=== PATIENT | female | born 1985 | race American Indian/Alaskan Native ===

== ENCOUNTER 2017-06-08 08:51 | Emergency (ER) | payer SELFPAY ==
[2017-06-08 09:29] VITALS: BP 131/85
--- NOTE | 2017-06-08 10:14 | Emergency Department Report ---
ED ENT HPI - General Chief complaint: Dental/Oral Stated complaint: RIGHT SIDE TOOTHACHE/SINUSES Time Seen by Provider: 06/08/17 10:04 Source: patient Mode of arrival: Ambulatory Limitations: No Limitations - History of Present Illness Initial comments: PT states she moved from [place] to [place] 1 week ago. PT states while she was moving, her tooth started to hurt. PT states she has been trying to treat herself with Motrin but no improvement. PT also states she has "real bad sinuses" and she usually takes Flonase and Singular. PT states she was taking otc dollar store nasal spray. PT states her lower right tooth has been bad since December. She states that Amoxil does not work for her and she has to take "straight PCN" pt states she also needs Diflucan with it. MD complaint: tooth pain -: Gradual 1 - pain Severity scale (0 -10): 7 Quality: aching, constant Consistency: constant Improves with: NSAID (mild ) Worsens with: eating Context- Dental: history of dental caries, poor dental care Associated Symptoms: toothache, rhinorrhea. denies: fever, sore throat - Related Data Previous Rx's Medication Instructions Recorded Last Taken Type Acetaminophen/Codeine [Tylenol #3] 1 tab PO Q6H PRN #12 tab 06/08/17 Unknown Rx Fluconazole [Diflucan TAB] 150 mg PO ONCE #1 tablet 06/08/17 Unknown Rx Fluticasone [Flonase] 2 spray NS QDAY #1 bottle 06/08/17 Unknown Rx Ibuprofen [Motrin] 600 mg PO Q8H PRN #15 tablet 06/08/17 Unknown Rx Montelukast [Singulair] 10 mg PO QPM #30 tablet 06/08/17 Unknown Rx Penicillin Vk [Veetids TAB] 500 mg PO QID 10 Days 06/08/17 Unknown Rx Allergies Allergy/AdvReac Type Severity Reaction Status Date / Time No Known Allergies Allergy Verified 06/08/17 09:22 ED Dental HPI - General Chief complaint: Dental/Oral Stated complaint: RIGHT SIDE TOOTHACHE/SINUSES Time Seen by Provider: 06/08/17 10:04 Source: patient Mode of arrival: Ambulatory Limitations: No Limitations - Related Data Previous Rx's Medication Instructions Recorded Last Taken Type Acetaminophen/Codeine [Tylenol #3] 1 tab PO Q6H PRN #12 tab 06/08/17 Unknown Rx Fluconazole [Diflucan TAB] 150 mg PO ONCE #1 tablet 06/08/17 Unknown Rx Fluticasone [Flonase] 2 spray NS QDAY #1 bottle 06/08/17 Unknown Rx Ibuprofen [Motrin] 600 mg PO Q8H PRN #15 tablet 06/08/17 Unknown Rx Montelukast [Singulair] 10 mg PO QPM #30 tablet 06/08/17 Unknown Rx Penicillin Vk [Veetids TAB] 500 mg PO QID 10 Days 06/08/17 Unknown Rx Allergies Allergy/AdvReac Type Severity Reaction Status Date / Time No Known Allergies Allergy Verified 06/08/17 09:22 ED Review of Systems ROS: Stated complaint: RIGHT SIDE TOOTHACHE/SINUSES Other details as noted in HPI Comment: All other systems reviewed and negative ENT: dental pain, congestion (hx of allergies ). denies: ear pain Respiratory: denies: cough Genitourinary: denies: abnormal menses (on cycle now ) ED Past Medical Hx - Past Medical History Previous Medical History?: Yes Hx Psychiatric Treatment: (anxiety) - Surgical History Past Surgical History?: No - Social History Smoking Status: Current Every Day Smoker Substance Use Type: None - Medications Home Medications: Home Medications Medication Instructions Recorded Confirmed Last Taken Type Acetaminophen/Codeine [Tylenol #3] 1 tab PO Q6H PRN #12 tab 06/08/17 Unknown Rx Fluconazole [Diflucan TAB] 150 mg PO ONCE #1 tablet 06/08/17 Unknown Rx Fluticasone [Flonase] 2 spray NS QDAY #1 bottle 06/08/17 Unknown Rx Ibuprofen [Motrin] 600 mg PO Q8H PRN #15 tablet 06/08/17 Unknown Rx Montelukast [Singulair] 10 mg PO QPM #30 tablet 06/08/17 Unknown Rx Penicillin Vk [Veetids TAB] 500 mg PO QID 10 Days 06/08/17 Unknown Rx ED Physical Exam - General Limitations: No Limitations General appearance: alert, in no apparent distress - Head Head exam: Present: atraumatic, normocephalic, normal inspection, other ( maxillary sinus tenderness) - Eye Eye exam: Present: normal appearance, PERRL, EOMI. Absent: conjunctival injection - ENT ENT exam: Present: mucous membranes moist, other (kathleen nasal turbinates with hypertrophy and erythema ) - Expanded ENT Exam Expanded Ear exam: Present: normal external inspection TM/Canal exam: Foreign Body: Right TM Mouth exam: Absent: drooling, trismus Teeth exam: Present: dental tenderness #. Absent: gingival enlargement 1 - Dental Tenderness (filling in place) Throat exam: Positive: normal inspection. Negative: tonsillar erythema - Neck Neck exam: Present: normal inspection, full ROM. Absent: tenderness, lymphadenopathy - Respiratory Respiratory exam: Present: normal lung sounds bilaterally. Absent: respiratory distress, chest wall tenderness - Cardiovascular Cardiovascular Exam: Present: regular rate, normal rhythm. Absent: normal heart sounds - Extremities Exam Extremities exam: Present: normal inspection, full ROM - Back Exam Back exam: Present: normal inspection, full ROM - Neurological Exam Neurological exam: Present: alert, oriented X3 - Psychiatric Psychiatric exam: Present: normal affect, normal mood - Skin Skin exam: Present: warm, dry, intact, normal color ED Course Vital Signs 06/08/17 09:23 Temperature 98.4 F Pulse Rate 87 Respiratory 20 Rate Blood Pressure 131/85 O2 Sat by Pulse 100 Oximetry - Reevaluation(s) Reevaluation #1: 06/08/17 10:19 PT aware of dx and plan of care. PT has no questions at this time. PT tolerated fb removal well. - Foreign Body Removal Ear Location: ear canal (R) Foreign Body Suspected: insect If Insect Suspected: ear canal inspected-intac Foreign Body Removed: yes Foreign Body Removal Technique: curette (plastic) Tympanic Membrane Intact: Yes Patient Tolerated Procedure: well Complications: none - Pulse Oximetry Interpretation Digit-Finger Initial Pulse Oximetry Readin Actions Taken: none ED Medical Decision Making - Differential Diagnosis toothache, fb, sinusitis, allergic rhinitis Critical Care Time: No Critical care attestation.: If time is entered above; I have spent that time in minutes in the direct care of this critically ill patient, excluding procedure time. ED Disposition Clinical Impression: Toothache Acute foreign body of ear Qualifiers: Encounter type: initial encounter Laterality: right Qualified Code(s): T16.1XXA - Foreign body in right ear, initial encounter Allergic rhinitis Qualifiers: Chronicity: unspecified Allergic rhinitis trigger: unspecified Allergic rhinitis seasonality: unspecified seasonality Qualified Code(s): J30.9 - Allergic rhinitis, unspecified Sinusitis Qualifiers: Sinusitis location: maxillary Chronicity: unspecified Qualified Code(s): J32.0 - Chronic maxillary sinusitis Disposition: TO HOME OR SELFCARE Is pt being admited?: No Does the pt Need Aspirin: No Condition: Stable Instructions: Sinusitis (ED), Ear Foreign Body (ED), Allergic Rhinitis (ED), Toothache (ED) Additional Instructions: No driving or alcohol after taking Tylenol #3 Follow up with PCP in 3-5 days Follow up with Dentist in 3-5 days Prescriptions: Acetaminophen/Codeine [Tylenol #3] 1 tab PO Q6H PRN #12 tab PRN Reason: Pain , Severe (7-10) Fluconazole [Diflucan TAB] 150 mg PO ONCE #1 tablet Fluticasone [Flonase] 2 spray NS QDAY #1 bottle Ibuprofen [Motrin] 600 mg PO Q8H PRN #15 tablet PRN Reason: Pain Montelukast [Singulair] 10 mg PO QPM #30 tablet Penicillin Vk [Veetids TAB] 500 mg PO QID 10 Days Referrals: MODESTA FAITH MD [Staff Physician] - 3-5 Days [facility] [Outside] - 3-5 Days [facility] [Outside] - 3-5 Days [facility] [Outside] - 3-5 Days Time of Disposition: 10:25
== END 2017-06-08 11:03 | disposition home or self-care (01) ==
LOC: ED 08:51
DX: T16.1XXA Foreign body in right ear, initial encounter (principal); J30.9 Allergic rhinitis, unspecified; J32.0 Chronic maxillary sinusitis; F17.210 Nicotine dependence, cigarettes, uncomplicated; X58.XXXA Exposure to other specified factors, initial encounter; Y93.89 Activity, other specified; Y92.89 Other specified places as the place of occurrence of the external cause; Y99.8 Other external cause status
CPT/HCPCS: 99282

== ENCOUNTER 2017-09-02 11:45 | Inpatient (IN) | payer SELFPAY ==
[2017-09-02] MEDS ORDERED: SUBLIMAZE ONE (12:40)
[2017-09-02] MEDS ORDERED: NACL 0.9% 1000 ML 1,000 ML ONE (12:41)
[2017-09-02] MEDS ORDERED: XYLOCAINE 2% INFILTRATI ONE (13:23)
[2017-09-02] MEDS ORDERED: BRETHINE IVP PRN (13:23)
[2017-09-02] MEDS ORDERED: ePHEDrine SULFATE IV PRN ×2 (13:23→14:59)
[2017-09-02] MEDS ORDERED: BRETHINE SUB-Q PRN (13:23)
[2017-09-02] MEDS ORDERED: SUBLIMAZE IV PRN (13:23)
[2017-09-02] MEDS ORDERED: MINERAL OIL PO PRN (13:23)
[2017-09-02] MEDS ORDERED: LACTATED RINGERS 1,000 ML ONE (13:25)
[2017-09-02 13:58] LABS: Mean Corpuscular HGB Conc 30 % (30-34); Mean Corpuscular Volume 70 fl (79-97); Platelet Count 196 K/mm3 (140-440); Red Blood Count 5.06 M/mm3 (3.65-5.03); Red Cell Distribution Width 15.7 % (13.2-15.2); White Blood Count 14.6 K/mm3 (4.5-11.0)
[2017-09-02] MEDS ORDERED: LACTATED RINGERS 1,000 ML IV SCH (14:00)
[2017-09-02] MEDS ORDERED: PITOCin/NS 20 UNIT/1000ML DRIP 20 UNITS/1,000 ML BAG IV SCH ×2 (14:00→23:00)
[2017-09-02 14:02] LABS: Hematocrit 35.5 % (30.3-42.9); Hemoglobin 10.8 gm/dl (10.1-14.3); Mean Corpuscular Hemoglobin 21 pg (28-32)
[2017-09-02] MEDS ORDERED: fentaNYL-BUPIV 2 MCG/ML-0.125% 200 MCG/100 ML BAG EPIDURAL ONE (14:32)
[2017-09-02] MEDS ORDERED: POLYCILLIN/NS 2 GM/100 ML 2 GM/100 ML BAG IV ONE (14:38)
--- NOTE | 2017-09-02 14:43 | History and Physical Report ---
History of Present Illness Date of examination: 09/02/17 Date of admission: 09/02/17 11:48 Chief complaint: leakage of fluid History of present illness: 32y/o @ 37+0 weeks presents to L&D triage with the complaint of leakage of fluid. The patient admits to not having care during this . At presentation her amniotic fluid was found to be meconium- stained. The patient had advanced cervical dilatation of 7 cm. Has a history of tobacco use and illicit drug use. Past History Past Medical History: no pertinent history Past Surgical History: no surgical history Social history: single - Obstetrical History Expected Date of Delivery: 09/23/17 Actual Gestation: 37 Week(s) 0 Day(s) : 3 Para: 0 Hx # Term Pregnancies: 0 Number of Pregnancies: 0 Spontaneous Abortions: 0 Induced : 2 Number of Living Children: 0 Medications and Allergies Allergies Allergy/AdvReac Type Severity Reaction Status Date / Time No Known Allergies Allergy Verified 06/08/17 09:22 Home Medications Medication Instructions Recorded Confirmed Last Taken Type Acetaminophen/Codeine [Tylenol #3] 1 tab PO Q6H PRN #12 tab 06/08/17 Unknown Rx Fluconazole [Diflucan TAB] 150 mg PO ONCE #1 tablet 06/08/17 Unknown Rx Fluticasone [Flonase] 2 spray NS QDAY #1 bottle 06/08/17 Unknown Rx Ibuprofen [Motrin] 600 mg PO Q8H PRN #15 tablet 06/08/17 Unknown Rx Montelukast [Singulair] 10 mg PO QPM #30 tablet 06/08/17 Unknown Rx Penicillin Vk [Veetids TAB] 500 mg PO QID 10 Days tablet 06/08/17 Unknown Rx Active Meds: Active Medications Ephedrine Sulfate (Ephedrine Sulfate) 10 mg IV Q2M PRN PRN Reason: Hypotension Fentanyl (Sublimaze) 100 mcg IV Q2H PRN PRN Reason: Labor Pain Ampicillin Sodium (Polycillin/Ns 1 Gm/50 Ml) 1 gm in 50 mls @ 100 mls/hr IV Q4HR JUAN DANIEL PRN Reason: Protocol Lactated Ringer's (Lactated Ringers) 1,000 mls @ 125 mls/hr IV DIRECT JUAN DANIEL Oxytocin/Sodium Chloride (Pitocin/Ns 20 Unit/1000ml Drip) 20 units in 1,000 mls @ 125 mls/hr IV DIRECT JUAN DANIEL Oxytocin/Sodium Chloride (Pitocin/Ns 30 Unit/500ml) 30 units in 500 mls @ 1 mls /hr IV TITR JUAN DANIEL; 1 MILLIUNITS/MIN PRN Reason: Protocol Ampicillin Sodium (Polycillin/Ns 2 Gm/100 Ml) 2 gm in 100 mls @ 100 mls/hr IV ONCE ONE Stop: 09/02/17 15:37 Influenza Virus Vaccine Quadrival (Fluarix Quad [id number](36 Mos+) 0.5 ml IM .ONCE ONE Stop: 09/03/17 12:03 Mineral Oil (Mineral Oil) 30 ml PO QHS PRN PRN Reason: Constipation Terbutaline Sulfate (Brethine) 0.25 mg SUB-Q ONCE PRN PRN Reason: Hyperstimulation/Hypertonicity Terbutaline Sulfate (Brethine) 0.25 mg IVP ONCE PRN PRN Reason: Hyperstimulation/Hypertonicity Review of Systems All systems: negative Genitourinary: leakage of fluid, pelvic pain, contractions - Vital Signs Vital signs: Vital Signs Pulse BP 106 H 142/86 09/02/17 11:52 09/02/17 11:52 Temp Pulse Resp BP Pulse Ox 77 148/71 09/02/17 14:37 09/02/17 14:37 - Physical Exam Breasts: Positive: deferred Cardiovascular: Regular rate Lungs: Positive: Clear to auscultation Abdomen: Positive: normal appearance Results Result Diagrams: 09/02/17 Unknown Abnormal lab results 09/02/17 Range/Units Unknown WBC 14.6 H (4.5-11.0) K/mm3 RBC 5.06 H (3.65-5.03) M/mm3 MCV 70 L (79-97) fl MCH 21 L (28-32) pg RDW 15.7 H (13.2-15.2) % All other labs normal. Assessment and Plan - Patient Problems (1) No care in current Current Visit: Yes Status: Acute Plan to address problem: admit and initiate antibiotic therapy and amnioinfusion (2) Spontaneous rupture of amniotic membranes Current Visit: Yes Status: Acute
[2017-09-02] MEDS ORDERED: NARCAN 2 MG/2 ML IV PRN (14:59)
--- NOTE | 2017-09-02 14:59 | Anesthesia Consultation ---
Anesthesia Consult and Med Hx Date of service: 09/02/17 - Airway Anesthetic Teeth Evaluation: Good ROM Head & Neck: Adequate Mental/Hyoid Distance: Adequate Mallampati Class: Class II Intubation Access Assessment: Probably Good - Pulmonary Exam CTA: Yes - Cardiac Exam Cardiac Exam: RRR - Pre-Operative Health Status ASA Pre-Surgery Classification: ASA2 Proposed Anesthetic Plan: Epidural - Pulmonary Hx Asthma: No COPD: No Hx Pneumonia: No - Cardiovascular System Hx Hypertension: No - Central Nervous System Hx Seizures: No Hx Psychiatric Problems: No - Endocrine Hx Renal Disease: No Hx End Stage Renal Disease: No Hx Hypothyroidism: No Hx Hyperthyroidism: No - Hematic Hx Anemia: No Hx Sickle Cell Disease: No - Other Systems Hx Alcohol Use: No
[2017-09-02] MEDS ORDERED: fentaNYL-BUPIV 2 MCG/ML-0.125% 200 MCG/100 ML BAG EPIDURAL SCH (15:00)
[2017-09-02 15:41] LABS: HIV-1 Antigen p24 Non React (Non React); HIVR-1/2 Ab Non React (Non React)
[2017-09-02] MEDS: PITOCin/NS 30 UNIT/500ML 30 UNITS/500 ML BAG IV SCH ×2 (16:40→17:22)
[2017-09-02] MEDS ORDERED: POLYCILLIN/NS 1 GM/50 ML 1 GM/50 ML BAG IV SCH (17:25)
[2017-09-02 17:53] LABS: Urine Drugs of Abuse Note Disclamer
--- NOTE | 2017-09-02 18:43 | Procedure Note ---
OB Delivery Note - Delivery Date of Delivery: 09/02/17 Surgeon: DAYA COLLINS Estimated blood loss: 200cc - Vaginal Delivery presentation: vertex Delivery position: OA Intrapartum events: no care, meconium Delivery augmentation: pitocin Delivery monitor: external FHT Route of delivery: Delivery placenta: spontaneous Delivery cord: 3 umbilical vessels Episiotomy: none Delivery laceration: none Anesthesia: epidural Delivery comments: Patient progressed to C/C/+2. She had been receiving an amnioinfusion for particulate meconium stained fluid. The patient pushed to deliver a liveborn female infant with Apgars of 8 and 9 weight 5 lbs. 15 oz. After delivery of the head the shoulders delivered easily. The was not stimulated. The cord was clamped and cut 2 and the infant was quickly taken to the warmer to be evaluated by the pediatric team. The placenta delivered spontaneously intact with a three-vessel cord. The patient sustained no lacerations. Estimated blood loss was 200 mL - Infant A at 1 minute: 8 at 5 minutes: 9 Gender: Female (weight 5lbs 15oz)
[2017-09-02] MEDS ORDERED: TUCKS PAD TP PRN (18:44)
[2017-09-02] MEDS ORDERED: PHENERGAN PR PRN (18:44)
[2017-09-02] MEDS ORDERED: BENADRYL PO PRN (18:44)
[2017-09-02] MEDS ORDERED: DULCOLAX PR PRN (18:44)
[2017-09-02] MEDS ORDERED: MILK OF MAGNESIA PO PRN (18:44)
[2017-09-02] MEDS ORDERED: PHENERGAN PO PRN (18:44)
[2017-09-02] MEDS ORDERED: TYLENOL PO PRN (18:44)
[2017-09-02] MEDS ORDERED: ZOFRAN IV PRN (18:44)
[2017-09-02] MEDS ORDERED: SODIUM CHLORIDE FLUSH SYRINGE 10 ML IV SCH (19:00)
[2017-09-02] MEDS: NORCO 5/325 PO PRN (21:56)
[2017-09-02] MEDS: MOTRIN PO SCH (21:57)
[2017-09-03] MEDS ORDERED: METHERGINE IM ONE (00:44)
[2017-09-03] MEDS ORDERED: CYTOTEC PO ONE (00:45)
[2017-09-03] MEDS ORDERED: CYTOTEC ONE (00:49)
[2017-09-03] MEDS ORDERED: STADOL IV PRN (01:11)
[2017-09-03] MEDS ORDERED: STADOL ONE (01:11)
[2017-09-03] MEDS ORDERED: CYTOTEC PR ONE (01:14)
--- NOTE | 2017-09-03 01:57 | Event Note ---
Date: 09/03/17 Called by nursing staff for excessive vaginal bleeding s/p . The patient did not experience significant bleeding immediately after delivery. Bleeding began several hours after delivery. The patient was evaluated by the charge nurses. She was administered cytotec, IV pitocin, and IM methergine. The uterus was explored with removal of organized clots. Bleeding was considerably improved upon my arrival. Caballero was placed. Bedside ultrasound performed by me with findings of a small clot at the fundus. Will continue with IV pitocin and initiate po methergine for the next 24 hours. Will initiate antibiotics secondary to the exploration.
[2017-09-03] MEDS ORDERED: PITOCin/NS 20 UNIT/1000ML DRIP 20 UNITS/1,000 ML BAG IV SCH ×4 (02:00→07:00)
[2017-09-03 02:52] LABS: Hematocrit 30.8 % (30.3-42.9); Hemoglobin 9.5 gm/dl (10.1-14.3)
[2017-09-03] MEDS: MOTRIN PO SCH ×3 (03:29→17:40)
[2017-09-03] MEDS: PERCOCET 5/325 PO PRN ×2 (03:30→17:40)
[2017-09-03] MEDS: METHERGINE PO SCH ×3 (05:55→17:40)
[2017-09-03] MEDS: ceFAZolin 2 GM in NACL 0.9% 20 ML IV SCH ×3 (05:55→23:45)
[2017-09-03] MEDS ORDERED: ceFAZolin 2 GM in NACL 0.9% 100 ML IV SCH (06:00)
--- NOTE | 2017-09-03 06:05 | Ultrasound Report ---
FINAL REPORT PROCEDURE: US OB FOLLOW UP TECHNIQUE: Real-time sonography performed for focused follow-up or re-evaluation of each size/growth parameters and amniotic fluid or re-evaluation of suspected or confirmed abnormality on prior imaging. CPT 86005 HISTORY: PTL/NPC COMPARISON: No prior studies are available for comparison. FINDINGS: IUP: Single living intrauterine . Position: Cephalic. Placental position: Anterior, without previa . Amniotic fluid volume: Normal. Amniotic fluid index is 11.7 centimeters. Heart rate and rhythm: 140 BPM, Regular . anatomic survey: Not examined.. MEASUREMENTS BPD: 8.9 centimeters correspond at 36 weeks. HC: 32.9 centimeters correspond at 37 weeks and 2 days. AC: 33.6 centimeters correspond at 37 weeks and 3 days. FL: 7.2 centimeters correspond at 37 weeks. Mean Gestational Age (composite criteria): 37 weeks. Ratio biometry: Normal . Estimated Weight: 3136 grams. Interval growth: No prior study available for comparison. Estimated Due Date (earliest scan): 09/23/2017. IMPRESSION: 1. Single living intrauterine gestation at approximately 37 weeks 2. EDC by US 09/23/2017.
[2017-09-03] MEDS: NORCO 5/325 PO PRN (10:05)
--- NOTE | 2017-09-03 10:46 | Progress Note ---
Assessment and Plan O; VSS AF Mildly elevated BP 130-148/80-90 PP H/H: 9.5/30.8 A: PP Day 1 Walk In No Care S/P PPH-stable Afterbirth Pains Seasonal Allergies P: Iron TID [place] daily Flonase/Singular Change N[place] to Percocet D/c Caballero Subjective - Subjective Date of service: 09/03/17 Patient reports: appetite normal, pain poorly controlled (c/o afterbirth pains and perineal discomfort), ambulating normally, other (also c/o seasonal allergy S&S, request flonase and Singular for releif), no voiding normally (Caballero present and patent), no pain well controlled [place]: doing well Objective - Vital Signs Latest vital signs: Vital Signs Temp Pulse Resp BP BP Pulse Ox 09/03/17 01:35 106 H 18 135/91 99 09/03/17 01:05 108 H 20 148/82 99 09/03/17 00:45 99.1 F 113 H 20 145/91 100 09/02/17 20:40 98.4 F 74 20 116/69 09/02/17 20:18 98 H 100 09/02/17 20:13 103 H 99 09/02/17 20:08 92 H 100 09/02/17 20:06 93 H 137/70 09/02/17 20:03 95 H 100 09/02/17 19:58 98 H 100 09/02/17 19:53 98 H 99 09/02/17 19:52 104 H 147/86 09/02/17 19:48 106 H 98 09/02/17 19:43 103 H 99 09/02/17 19:38 103 H 100 09/02/17 19:36 104 H 138/76 09/02/17 19:33 92 H 100 09/02/17 19:28 96 H 98 09/02/17 19:23 105 H 100 09/02/17 19:22 94 H 81 L 09/02/17 19:21 157 H 130/76 09/02/17 19:18 87 100 09/02/17 19:13 83 97 09/02/17 19:12 89 76 L 09/02/17 19:08 83 100 09/02/17 19:06 88 126/64 09/02/17 19:03 83 99 09/02/17 18:58 83 100 09/02/17 18:53 88 99 09/02/17 18:52 90 131/69 09/02/17 18:48 101 H 137/98 74 L 09/02/17 18:27 133 H 118/63 09/02/17 17:26 74 122/82 09/02/17 16:45 77 121/65 09/02/17 15:20 89 100 09/02/17 15:18 80 0 L 09/02/17 15:14 84 100 09/02/17 15:13 82 0 L 09/02/17 15:09 90 100 09/02/17 15:07 88 143/84 0 L 09/02/17 15:04 95 H 100 09/02/17 14:59 87 100 09/02/17 14:54 91 H 152/100 100 09/02/17 14:49 98 H 100 09/02/17 14:37 77 148/71 09/02/17 14:22 83 175/94 09/02/17 14:08 80 161/95 09/02/17 13:52 82 158/105 09/02/17 13:38 76 160/96 09/02/17 13:22 88 144/85 09/02/17 13:07 78 138/83 09/02/17 12:52 80 144/86 09/02/17 12:37 88 144/84 09/02/17 12:22 93 H 143/88 09/02/17 12:07 98 H 145/86 09/02/17 11:52 106 H 142/86 Intake and Output 09/02/17 09/03/17 09/03/17 22:59 06:59 14:59 Intake Total 2.8 Balance 2.8 Intake: IV 2.8 PITOCin/NS 30 UNIT/500ML 2.8 30 units In 500 ml @ 4 MILLIUNITS/MIN 4 mls/hr IV TITR JUAN DANIEL Rx#:[id number] Other: Estimated Blood Loss 200 - Exam Lungs: Present: Normal air movement Abdomen: Present: normal appearance, soft, normal bowel sounds. Absent: distention, tenderness Vulva: both: normal (scant lochis) Uterus: Present: normal, firm, fundal height at umbilicus. Absent: bogginess Extremities: Present: normal - Labs Labs: Abnormal lab results 09/02/17 09/03/17 Range/Units Unknown 02:40 WBC 14.6 H (4.5-11.0) K/mm3 RBC 5.06 H (3.65-5.03) M/mm3 Hgb 9.5 L (10.1-14.3) gm/dl MCV 70 L (79-97) fl MCH 21 L (28-32) pg RDW 15.7 H (13.2-15.2) %
--- NOTE | 2017-09-03 11:04 | Progress Note ---
Subjective Date of service: 09/03/17 Interval history: 1st day after normal vaginal delivery Patient is in the bed, comfortable. Pain is well controlled with pain meds. Ambulated well. No residual neurological deficit. No anesthesia complications. Objective - Constitutional Vitals: Vital Signs - 12hr 09/03/17 09/03/17 09/03/17 00:45 01:05 01:35 Temperature 99.1 F Pulse Rate 113 H 108 H 106 H Respiratory 20 20 18 Rate Blood Pressure 145/91 148/82 135/91 [Right] O2 Sat by Pulse 100 99 99 Oximetry - Labs CBC & Chem 7: 09/03/17 02:40 Labs: Abnormal lab results 09/02/17 09/03/17 Range/Units Unknown 02:40 WBC 14.6 H (4.5-11.0) K/mm3 RBC 5.06 H (3.65-5.03) M/mm3 Hgb 9.5 L (10.1-14.3) gm/dl MCV 70 L (79-97) fl MCH 21 L (28-32) pg RDW 15.7 H (13.2-15.2) %
[2017-09-03] MEDS ORDERED: ZOFRAN PO PRN (11:15)
[2017-09-03] MEDS ORDERED: DEMEROL IV PRN (11:15)
[2017-09-03] MEDS ORDERED: ZOFRAN IV PRN (11:15)
[2017-09-03] MEDS ORDERED: MORPHINE ONE (11:28)
[2017-09-03] MEDS ORDERED: TORADOL PO PRN (12:00)
[2017-09-03] MEDS ORDERED: MORPHINE IM ONE (12:00)
[2017-09-03] MEDS ORDERED: Fluarix Quad 2017-2018(36 MOS+ IM ONE (12:02)
[2017-09-03] MEDS: FEOSOL PO SCH ×2 (14:45→21:10)
[2017-09-03] MEDS: SINGULAIR PO SCH (18:25)
[2017-09-03] MEDS: COLACE PO SCH (21:10)
[2017-09-04] MEDS: PERCOCET 5/325 PO PRN ×3 (00:42→12:22)
[2017-09-04] MEDS: METHERGINE PO SCH ×2 (00:42→07:05)
[2017-09-04] MEDS: MOTRIN PO SCH ×3 (00:44→12:23)
[2017-09-04] MEDS: SINGULAIR PO SCH (01:57)
[2017-09-04] MEDS: ceFAZolin 2 GM in NACL 0.9% 20 ML IV SCH (07:23)
--- NOTE | 2017-09-04 09:29 | Progress Note ---
Assessment and Plan A/P PPD# 2 PP hemorrhage s/p methergine and abx for exploration h/h stabel 10.8/35.5-9.5/30.8 VSS doing well d/c home in stable condition with return to clinic in 2 weeks Subjective - Subjective Date of service: 09/04/17 Principal diagnosis: PP hemorrhage Patient reports: appetite normal, voiding normally, pain well controlled, ambulating normally [place]: doing well Objective - Vital Signs Latest vital signs: Vital Signs Temp Pulse Resp BP Pulse Ox 09/04/17 04:33 98.6 F 91 H 18 118/51 100 09/03/17 17:31 98.7 F 102 H 18 136/97 100 - Exam Breasts: Present: normal Cardiovascular: Present: Regular rate, Normal S1 Lungs: Present: Clear to auscultation, Normal air movement Abdomen: Present: normal appearance, soft, normal bowel sounds. Absent: distention, tenderness Vulva: both: normal Uterus: Present: normal, firm, fundal height below umbilicus Extremities: Present: normal Deep Tendon Reflex Grade: Normal +2
--- NOTE | 2017-09-04 09:35 | Discharge Summary ---
Providers - Providers Date of Admission: 09/02/17 11:48 Date of discharge: 09/04/17 Attending physician: DAYA COLLINS Primary care physician: [employer] Hospitalization Reason for admission: active labor Delivery: Episiotomy: none Laceration: none complications: none Discharge diagnosis: IUP at term delivered Condition at discharge: Good Disposition: DC-01 TO HOME OR SELFCARE Plan - Discharge Medications Prescriptions: Ferrous Sulfate [Feosol 325 MG tab] 325 mg PO BID #60 tablet Ibuprofen [Motrin] 600 mg PO Q8H PRN #30 tablet PRN Reason: Pain oxyCODONE /ACETAMINOPHEN [Percocet 5/325] 1 tab PO Q6HR PRN #30 tablet PRN Reason: Pain - Provider Discharge Summary Activity: routine, no sex for 6 weeks, no strenuous exercise Diet: routine Instructions: routine Additional instructions: [] Smoking cessation referral if applicable(refer to patient education folder for contact #) [] Refer to [facility] Booklet Call your doctor immediately for: * Fever > 100.5 * Heavy vaginal bleeding ( >1 pad per hour) * Severe persistent headache * Shortness of breath * Reddened, hot, painful area to leg or breast * Drainage or odor from incision. * Keep incision clean and dry at all times and follow doctor's instructions regarding bathing/showering - Follow up plan Follow up: PRIMARY CAREMD [Primary Care Provider] - 14 Days
[2017-09-04] MEDS ORDERED: FLONASE NS SCH (10:00)
[2017-09-04 10:06] VITALS: BP 108/58
[2017-09-04] MEDS: FEOSOL PO SCH (12:15)
[2017-09-04] MEDS: COLACE PO SCH (12:16)
[2017-09-04] MEDS ORDERED: Fluarix Quad 2017-2018(36 MOS+ IM ONE (13:15)
== END 2017-09-04 15:30 | disposition home or self-care (01) | DRG 774 ==
LOC: TRG 11:45 → LD 11:46 → TRG 11:47 → LD 11:48 → OB 20:46
PROVIDERS: ADMIT Obstetrics & Gynecology; ATTEND Obstetrics & Gynecology
PROC: 10E0XZZ Delivery of Products of Conception, External Approach (ICD-10-PCS; principal; 2017-09-02)
PROC: 3E0R3BZ Introduction of Anesthetic Agent into Spinal Canal, Percutaneous Approach (ICD-10-PCS; 2017-09-02)
PROC: 00HU33Z Insertion of Infusion Device into Spinal Canal, Percutaneous Approach (ICD-10-PCS; 2017-09-02)
PROC: 3E0234Z Introduction of Serum, Toxoid and Vaccine into Muscle, Percutaneous Approach (ICD-10-PCS; 2017-09-04)
DX: O77.0 Labor and delivery complicated by meconium in amniotic fluid (principal); O72.1 Other immediate postpartum hemorrhage; Z3A.37 37 weeks gestation of pregnancy; Z37.0 Single live birth; Z23 Encounter for immunization; Z87.891 Personal history of nicotine dependence; Z79.899 Other long term (current) drug therapy; Z79.2 Long term (current) use of antibiotics
CPT/HCPCS: 36415; 76816; 80307; 85014; 85018; 85027; 85660; 86592; 86706; 86762; 86803; 86850; 86900; 86901; 87806; 90686; 99211; G0463; J0290; J0595; J0690; J2210; J2270; J2405; J2590; J3010; J7030; J7120

== ENCOUNTER 2018-11-18 06:11 | Inpatient (IN) | payer OTHER ==
[2018-11-18] MEDS ORDERED: NACL 0.9% 1000 ML 1,000 ML ONE (06:18)
[2018-11-18] MEDS ORDERED: NACL 0.9% 1000 ML 1,000 ML IV ONE ×2 (06:21→07:20)
[2018-11-18] MEDS ORDERED: PROTONIX IV ONE (06:29)
[2018-11-18] MEDS ORDERED: NACL 0.9% 500 ML 500 ML IV ONE (06:42)
[2018-11-18 06:45] LABS: Basophils # (Auto) 0.1 K/mm3 (0.0-0.1); Basophils % (Auto) 0.9 % (0.0-1.8); Eosinophils # (Auto) 0.4 K/mm3 (0.0-0.4); Eosinophils % (Auto) 3.8 % (0.0-4.3); Lymphocytes # (Auto) 2.8 K/mm3 (1.2-5.4); Lymphocytes % (Auto) 28.2 % (13.4-35.0); Mean Corpuscular HGB Conc 31 % (30-34); Monocytes # (Auto) 0.5 K/mm3 (0.0-0.8); Platelet Count 322 K/mm3 (140-440); Red Blood Count 2.74 M/mm3 (3.65-5.03); Red Cell Distribution Width 19.1 % (13.2-15.2)
[2018-11-18 06:47] LABS: Hematocrit 18.7 % (30.3-42.9); Hemoglobin 5.8 gm/dl (10.1-14.3); Mean Corpuscular Volume 68 fl (79-97)
[2018-11-18 06:56] LABS: INR 1.11 (0.87-1.13); Partial Thromboplastin Time 25.2 Sec. (24.2-36.6)
[2018-11-18 07:10] LABS: Alanine Aminotransferase 24 units/L (7-56); BUN/Creatinine Ratio 20; Blood Urea Nitrogen 14 mg/dL (7-17); Calcium 8.1 mg/dL (8.4-10.2); Hemolysis Index 8
--- NOTE | 2018-11-18 07:25 | Emergency Department Report ---
ED GI Bleed HPI - General Chief complaint: GI Bleed Stated complaint: VOMITING BLOOD/WEAKNESS Time Seen by Provider: 11/18/18 06:23 Source: EMS Mode of arrival: Stretcher Limitations: Physical Limitation - History of Present Illness Initial comments: This is a 33-year-old female discharged yesterday found to have a gastric ulcer which had prior blood head. Her discharge hemoglobin was 7.2. The patient is not communicating real well at this time. However EMS said that she had a cooler at home that showed the presence of bright red blood. She has not vomited since she has been here. Her heart rate is in the 110s and her blood pressure in the 100s. She is not in distress. She is not providing a lot of history and not amply cooperative. MD complaint: gross hematemesis -: unknown Consistency: now resolved (apparently no active vomiting now) Context: history of GI bleed Associated Symptoms: denies other symptoms (no active complaints) - Related Data Previous Rx's Medication Instructions Recorded Last Taken Type oxyCODONE /ACETAMINOPHEN [Percocet 1 tab PO Q6HR PRN #30 tablet 09/04/17 Unknown Rx 5/325] Ferrous Sulfate 325 mg PO BID #60 tablet. 11/17/18 Unknown Rx Pantoprazole [Protonix TAB] 40 mg PO QDAY #30 tablet 11/17/18 Unknown Rx Allergies Allergy/AdvReac Type Severity Reaction Status Date / Time No Known Allergies Allergy Verified 06/08/17 09:22 ED Review of Systems ROS: Stated complaint: VOMITING BLOOD/WEAKNESS Other details as noted in HPI Comment: Unobtainable due to pts medical conditions (limited due to poor patient cooperation) ED Past Medical Hx - Past Medical History Previous Medical History?: Yes Hx Hypertension: No Hx Congestive Heart Failure: No Hx Diabetes: No Hx Deep Vein Thrombosis: No Hx Renal Disease: No Hx Sickle Cell Disease: No Hx Seizures: No Hx Psychiatric Treatment: Yes (anxiety) Hx Asthma: No Hx COPD: No Hx HIV: No Additional medical history: PUD - Social History Smoking Status: Unknown if ever smoked - Medications Home Medications: Home Medications Medication Instructions Recorded Confirmed Last Taken Type oxyCODONE /ACETAMINOPHEN [Percocet 1 tab PO Q6HR PRN #30 tablet 09/04/17 11/15/18 Unknown Rx 5/325] Ferrous Sulfate 325 mg PO BID #60 tablet. 11/17/18 Unknown Rx Pantoprazole [Protonix TAB] 40 mg PO QDAY #30 tablet 11/17/18 Unknown Rx ED Physical Exam - General Limitations: Physical Limitation, Other (poor cooperation) General appearance: alert, in no apparent distress - Head Head exam: Present: atraumatic, normocephalic - Eye Eye exam: Present: normal appearance, other (conjunctival pallor). Absent: scleral icterus - ENT ENT exam: Present: mucous membranes moist - Neck Neck exam: Present: normal inspection. Absent: tenderness, meningismus - Respiratory Respiratory exam: Present: normal lung sounds bilaterally. Absent: respiratory distress - Cardiovascular Cardiovascular Exam: Present: regular rate, normal rhythm. Absent: systolic murmur, diastolic murmur, rubs, gallop - GI/Abdominal GI/Abdominal exam: Present: soft, normal bowel sounds. Absent: distended, tenderness, guarding, rebound, rigid, organomegaly, mass, bruit, pulsatile mass, hernia - Extremities Exam Extremities exam: Present: normal inspection - Back Exam Back exam: Present: normal inspection - Neurological Exam Neurological exam: Present: alert, oriented X3, CN II-XII intact. Absent: motor sensory deficit - Psychiatric Psychiatric exam: Present: normal mood, flat affect - Skin Skin exam: Present: warm, dry, intact, normal color. Absent: rash ED Course Vital Signs 11/18/18 11/18/18 06:21 07:07 Temperature 97.7 F Pulse Rate 112 H Respiratory 21 Rate Blood Pressure 104/54 O2 Sat by Pulse 100 Oximetry - Reevaluation(s) Reevaluation #1: Discussed with Dr. Boucher. He states keep the patient nothing by mouth. He will see her this morning. He did not want an NG tube at this time. Discussed with Dr. Prado. Admit to Dr. Janet INIGUEZ. 11/18/18 07:23 Reevaluation #2: Blood bank has already been notified concerning emergency transfusion. Protonix drip. 11/18/18 07:26 ED Medical Decision Making - Lab Data Result diagrams: 11/18/18 06:26 11/18/18 06:26 Laboratory Results - last 24 hr 11/18/18 11/18/18 11/18/18 06:26 06:26 06:26 WBC 9.8 RBC 2.74 L Hgb 5.8 L* Hct 18.7 L* MCV 68 L MCH 21 L MCHC 31 RDW 19.1 H Plt Count 322 Lymph % (Auto) 28.2 [place] % (Auto) 5.0 Eos % (Auto) 3.8 Baso % (Auto) 0.9 Lymph # 2.8 Amelia # 0.5 Eos # 0.4 Baso # 0.1 Seg Neutrophils % 62.1 Seg Neutrophils # 6.1 PT 15.0 H INR 1.11 APTT 25.2 Sodium 140 Potassium 3.8 Chloride 106.4 Carbon Dioxide 17 L Anion Gap 20 BUN 14 Creatinine 0.7 Estimated GFR > 60 BUN/Creatinine Ratio 20 Glucose 181 H Calcium 8.1 L Total Bilirubin < 0.20 AST 34 ALT 24 Alkaline Phosphatase 63 Total Protein 5.1 L Albumin 3.0 L Albumin/Globulin Ratio 1.4 Lipase 54 HCG, Qual 11/18/18 06:26 WBC RBC Hgb Hct MCV MCH MCHC RDW Plt Count Lymph % (Auto) [place] % (Auto) Eos % (Auto) Baso % (Auto) Lymph # Amelia # Eos # Baso # Seg Neutrophils % Seg Neutrophils # PT INR APTT Sodium Potassium Chloride Carbon Dioxide Anion Gap BUN Creatinine Estimated GFR BUN/Creatinine Ratio Glucose Calcium Total Bilirubin AST ALT Alkaline Phosphatase Total Protein Albumin Albumin/Globulin Ratio Lipase HCG, Qual Negative - EKG Data -: EKG Interpreted by Or EKG shows normal: sinus rhythm, axis, intervals, QRS complexes, ST-T waves Rate: tachycardia - EKG Data Interpretation: no acute changes - Radiology Data Radiology results: pending Critical Care Time: Yes Critical care time in (mins) excluding proc time.: 60 Critical care attestation.: If time is entered above; I have spent that time in minutes in the direct care of this critically ill patient, excluding procedure time. ED Disposition Clinical Impression: Upper GI bleeding Gastric ulcer Qualifiers: Gastric ulcer chronicity: acute Gastric ulcer complication status: with hemorrhage Qualified Code(s): K25.0 - Acute gastric ulcer with hemorrhage Disposition: OP ADMIT IP TO THIS HOSP Is pt being admited?: Yes Does the pt Need Aspirin: No Condition: Stable Time of Disposition: 07:27
[2018-11-18] MEDS ORDERED: MORPHINE IV ONE (07:46)
[2018-11-18] MEDS ORDERED: ZOFRAN IV ONE (07:46)
--- NOTE | 2018-11-18 07:58 | XRay Report ---
AP CHEST: HISTORY: Difficulty in breathing AP view of the chest demonstrates a normal mediastinal and cardiac contour with clear lungs and normal bony and soft tissue structures. IMPRESSION: Unremarkable AP chest. No change since 11/15/18.
--- NOTE | 2018-11-18 07:58 | History and Physical Report ---
History of Present Illness Date of examination: 11/18/18 Chief complaint: Hematemesis History of present illness: 33-year-old -[place] female with no significant past medical history was presented to the emergency department with complaints of hematemesis 2. She said it was my feeling is that the patient become woozy. Patient was discharged from the hospital after she was monitored for upper GI bleed secondary to ulcer due to NSAIDs. H&H was stable at the time of discharge. Patient said she went home and started to smoke cigarettes, but denied use of alcohol or NSAIDs. Regina ent denied chest pain, shortness of breath. She said she had 3 episodes of melena. Patient sent there is blood transfusions in the ED and admitted to MICU. REVIEW OF SYSTEMS: GENERAL: no weight change, no fatigue, no fever HEAD: no head ache EYES: no blurry vision, no acute visual loss EARS: no hearing loss, no discharge, no earache NOSE: no stuffiness, no sneezing, no discharge MOUTH, THROAT AND NECK: no bleeding gums, no sore throat, no swollen neck CARDIAC: no palpitations, no dyspnea on exertion, no orthopnea, no PND, no edema, no chest pain RESPIRATORY: no shortness of breath, no wheeze, no cough, no sputum, no hemoptysis, no asthma GI: As stated in the HPI. URINARY: no change in frequency, no urgency, no polyuria, no hematuria, no incontinence MUSCULOSKELETAL: no muscle weakness, no pain, no joint stiffness NEUROLOGIC: no loss of sensation/numbness, no tingling, no tremors, no weakness/paralysis HEMATOLOGIC: no anemia, no easy bruising SKIN: no rashes ENDOCRINE: no heat/cold intolerance, no polyuria, no polydipsia, no thyroid problems, no diabetes PSYCHIATRIC: no anxiety, no depression, no suicidal ideations Past History Past Medical History: other (GI bleed) Past Surgical History: No surgical history Social history: smoking (ciagrettes, methamphetamine), full code. denies: alcohol abuse, prescription drug abuse, IV drug use Family history: no significant family history Medications and Allergies Allergies Allergy/AdvReac Type Severity Reaction Status Date / Time No Known Allergies Allergy Verified 06/08/17 09:22 Home Medications Medication Instructions Recorded Confirmed Last Taken Type Ferrous Sulfate 325 mg PO BID #60 tablet. 11/17/18 11/18/18 Unknown Rx Pantoprazole [Protonix TAB] 40 mg PO QDAY #30 tablet 11/17/18 11/18/18 11/17/18 Rx 0800 Active Meds: Active Medications Sodium Chloride (Nacl 0.9% 1000 Ml) 1,000 mls @ 250 mls/hr IV ONCE ONE Stop: 11/18/18 10:20 Last Admin: 11/18/18 06:27 Dose: 250 mls/hr Documented by: Sodium Chloride (Nacl 0.9% 1000 Ml) 1,000 mls @ 125 mls/hr IV ONCE ONE Stop: 11/18/18 15:19 Pantoprazole Sodium 80 mg/ (Sodium Chloride) 100 mls @ 10 mls/hr IV DIRECT JUAN DANIEL Exam - Physical Exam Narrative exam: Not in cardiopulmonary distress. The patient is obese. Vital signs as documented. Head exam is unremarkable. No scleral icterus . Neck is without jugular venous distension, thyromegaly, or carotid bruits. Lungs are clear to auscultation. Cardiac exam reveals regular rate and Rhythm. First and second heart sounds normal. No murmurs, rubs or gallops. Abdominal exam reveals normal bowel sounds, no masses, no organomegaly and no aortic enlargement. Extremities are nonedematous and both femoral and pedal pulses are normal. TIMBER ROBBER: Alert and oriented 3. No focal weakness. - Constitutional Vitals: Temp Pulse Resp BP Pulse Ox 97.7 F 93 H 15 113/55 100 11/18/18 06:21 11/18/18 07:30 11/18/18 07:30 11/18/18 07:30 11/18/18 07:30 Results - Labs CBC & Chem 7: 11/18/18 06:26 11/18/18 06:26 Labs: Laboratory Last Values WBC 9.8 K/mm3 (4.5-11.0) 11/18/18 06:26 RBC 2.74 M/mm3 (3.65-5.03) L 11/18/18 06:26 Hgb 5.8 gm/dl (10.1-14.3) L* 11/18/18 06:26 Hct 18.7 % (30.3-42.9) L* 11/18/18 06:26 MCV 68 fl (79-97) L 11/18/18 06:26 MCH 21 pg (28-32) L 11/18/18 06:26 MCHC 31 % (30-34) 11/18/18 06:26 RDW 19.1 % (13.2-15.2) H 11/18/18 06:26 Plt Count 322 K/mm3 (140-440) 11/18/18 06:26 Lymph % (Auto) 28.2 % (13.4-35.0) 11/18/18 06:26 [place] % (Auto) 5.0 % (0.0-7.3) 11/18/18 06:26 Eos % (Auto) 3.8 % (0.0-4.3) 11/18/18 06:26 Baso % (Auto) 0.9 % (0.0-1.8) 11/18/18 06:26 Lymph # 2.8 K/mm3 (1.2-5.4) 11/18/18 06:26 [place] # 0.5 K/mm3 (0.0-0.8) 11/18/18 06:26 Eos # 0.4 K/mm3 (0.0-0.4) 11/18/18 06:26 Baso # 0.1 K/mm3 (0.0-0.1) 11/18/18 06:26 Seg Neutrophils % 62.1 % (40.0-70.0) 11/18/18 06:26 Seg Neutrophils # 6.1 K/mm3 (1.8-7.7) 11/18/18 06:26 PT 15.0 Sec. (12.2-14.9) H 11/18/18 06:26 INR 1.11 (0.87-1.13) 11/18/18 06:26 APTT 25.2 Sec. (24.2-36.6) 11/18/18 06:26 Sodium 140 mmol/L (137-145) 11/18/18 06:26 Potassium 3.8 mmol/L (3.6-5.0) 11/18/18 06:26 Chloride 106.4 mmol/L (98-107) 11/18/18 06:26 Carbon Dioxide 17 mmol/L (22-30) L 11/18/18 06:26 Anion Gap 20 mmol/L 11/18/18 06:26 BUN 14 mg/dL (7-17) 11/18/18 06:26 Creatinine 0.7 mg/dL (0.7-1.2) 11/18/18 06:26 Estimated GFR > 60 ml/min 11/18/18 06:26 BUN/Creatinine Ratio 20 % 11/18/18 06:26 Glucose 181 mg/dL (65-100) H 11/18/18 06:26 Calcium 8.1 mg/dL (8.4-10.2) L 11/18/18 06:26 Total Bilirubin < 0.20 mg/dL (0.1-1.2) 11/18/18 06:26 AST 34 units/L (5-40) 11/18/18 06:26 ALT 24 units/L (7-56) 11/18/18 06:26 Alkaline Phosphatase 63 units/L (35-129) 11/18/18 06:26 Total Protein 5.1 g/dL (6.3-8.2) L 11/18/18 06:26 Albumin 3.0 g/dL (3.9-5) L 11/18/18 06:26 Albumin/Globulin Ratio 1.4 % 11/18/18 06:26 Lipase 54 units/L (13-60) 11/18/18 06:26 HCG, Qual Negative (Negative) 11/18/18 06:26 Blood Type B POSITIVE 11/18/18 06:26 Antibody Screen Negative 11/18/18 06:26 Crossmatch See Detail 11/18/18 06:26 Assessment and Plan Assessment and plan: Recurrent upper GI bleed -Patient is on IV Protonix - GI Was consulted and did EGD morning findings as stated below; 1. Massive clot in the stomach; could not see parts of fundus and body 2. Previous ulcer site seen with visible vessel; only 1 clip from previous endoscopy noted - Attempted to deploy 2 clips across visible vessel; one did not adhere (friable mucosa) but one did deploy across the vessel with no further active bleed 3. Duodenum and antrum without lesion; cardia of stomach without lesion 4. Esophagus normal Procedure: EGD with endoscopic clipping for bleeding control Disposition: other (Recs: 1. Discussed with IR; given rebleed with large volume of bleeding, would recommend IR embolization. 2. Will keep NPO until embilization. 3. Avoid all NSAIDs. 4. Continue protonix drip. 5. Clear liquid diet after embolization if OK with IR.) IR consulted by GI for embolization. Severe anemia - Hemoglobin was 5.8 at presentation - Transfused 2 units of blood - Monitor serial H&H Disposition - Continue IMCU care VTE prophylaxis?: Mechanical Contraindication Mechanical VTE Prophylaxis: Contraindicated Reason for no VTE Prophylaxis: Bleeding Plan of care discussed with patient/family: Yes
[2018-11-18] MEDS: PROTONIX 80 MG in NACL 0.9% 100 ML IV SCH ×2 (08:37→18:17)
--- NOTE | 2018-11-18 09:29 | Gastroenterology Consultation ---
History of Present Illness - Reason for Consult Consult date: 11/18/18 GI Bleed Requesting physician: JEF ASTUDILLO - History of Present Illness The patient was seen earlier this week for a bleeding gastric ulcer from excess ibuprofen use. She had cautery of visible vessel in the stomach, but no other lesions were seen. She went home and says no NSAIDS/compliant with omeprazole, but returned to the ER this AM because of recurrent hematemesis. There was no severe abdominal pain, just severe nausea. She has had melena. There is no CP or SOB, but she did have pre-syncope with the emesis. Past History Past Medical History: other (Gastric ulcer, Anxiety) Past Surgical History: No surgical history Social history: smoking. denies: alcohol abuse Family history: no significant family history Medications and Allergies Allergies Allergy/AdvReac Type Severity Reaction Status Date / Time No Known Allergies Allergy Verified 06/08/17 09:22 Home Medications Medication Instructions Recorded Confirmed Last Taken Type Ferrous Sulfate 325 mg PO BID #60 tablet. 11/17/18 11/18/18 Unknown Rx Pantoprazole [Protonix TAB] 40 mg PO QDAY #30 tablet 11/17/18 11/18/18 11/17/18 Rx 0800 Active Meds: Active Medications Sodium Chloride (Nacl 0.9% 1000 Ml) 1,000 mls @ 250 mls/hr IV ONCE ONE Stop: 11/18/18 10:20 Last Admin: 11/18/18 06:27 Dose: 250 mls/hr Documented by: Sodium Chloride (Nacl 0.9% 1000 Ml) 1,000 mls @ 125 mls/hr IV ONCE ONE Stop: 11/18/18 15:19 Pantoprazole Sodium 80 mg/ (Sodium Chloride) 100 mls @ 10 mls/hr IV DIRECT JUAN DANIEL Last Admin: 11/18/18 08:37 Dose: 8 mg/hr, 10 mls/hr Documented by: I HAVE REVIEWED AND RECONCILED MEDICATIONS Review of Systems - Review of Systems All systems: negative (as noted in the HPI.) Exam - Constitutional Vital Signs: Temp Pulse Resp BP Pulse Ox 97.7 F 85 15 106/56 100 11/18/18 06:21 11/18/18 08:46 11/18/18 08:46 11/18/18 08:46 11/18/18 08:46 General appearance: no acute distress - EENT Eyes: PERRL, EOM intact ENT: hearing intact, clear oral mucosa, no thrush - Neck Neck: supple, normal ROM - Respiratory Respiratory effort: normal Respiratory: bilateral: CTA - Cardiovascular Rhythm: regular Heart Sounds: Present: S1 & S2 Extremities: no ischemia, No edema - Gastrointestinal General gastrointestinal: Present: soft, non-tender, non-distended - Integumentary Integumentary: Present: clear, warm, dry - Neurologic Neurological: alert and oriented x3 - Labs CBC & Chem 7: 11/18/18 06:26 11/18/18 06:26 Lab Results: Laboratory Results - last 24 hr 11/18/18 11/18/18 11/18/18 06:26 06:26 06:26 WBC 9.8 RBC 2.74 L Hgb 5.8 L* Hct 18.7 L* MCV 68 L MCH 21 L MCHC 31 RDW 19.1 H Plt Count 322 Lymph % (Auto) 28.2 [place] % (Auto) 5.0 Eos % (Auto) 3.8 Baso % (Auto) 0.9 Lymph # 2.8 [place] # 0.5 Eos # 0.4 Baso # 0.1 Seg Neutrophils % 62.1 Seg Neutrophils # 6.1 PT 15.0 H INR 1.11 APTT 25.2 Sodium 140 Potassium 3.8 Chloride 106.4 Carbon Dioxide 17 L Anion Gap 20 BUN 14 Creatinine 0.7 Estimated GFR > 60 BUN/Creatinine Ratio 20 Glucose 181 H Calcium 8.1 L Total Bilirubin < 0.20 AST 34 ALT 24 Alkaline Phosphatase 63 Total Protein 5.1 L Albumin 3.0 L Albumin/Globulin Ratio 1.4 Lipase 54 HCG, Qual Blood Type Antibody Screen Crossmatch 11/18/18 11/18/18 06:26 06:26 WBC RBC Hgb Hct MCV MCH MCHC RDW Plt Count Lymph % (Auto) [place] % (Auto) Eos % (Auto) Baso % (Auto) Lymph # [place] # Eos # Baso # Seg Neutrophils % Seg Neutrophils # PT INR APTT Sodium Potassium Chloride Carbon Dioxide Anion Gap BUN Creatinine Estimated GFR BUN/Creatinine Ratio Glucose Calcium Total Bilirubin AST ALT Alkaline Phosphatase Total Protein Albumin Albumin/Globulin Ratio Lipase HCG, Qual Negative Blood Type B POSITIVE Antibody Screen Negative Crossmatch See Detail Assessment and Plan - Patient Problems (1) Gastric ulcer with hemorrhage Current Visit: Yes Status: Acute Plan to address problem: - Early rebleed worrisome for need for embolization/need for surgery. - Will place back on protonix gtt. - NPO by mouth, repeat EGD later today. - Reglan x 1. - Will contact IR if continues to bleed.
[2018-11-18] MEDS ORDERED: REGLAN IV NR (10:00)
--- NOTE | 2018-11-18 12:05 | Event Note ---
Date: 11/18/18 33 year old female with GI bleed secondary to NSAID use with recent GI bleed requiring readmission and transfusion. GI will be scoping the patient later today. Based on endoscopy, may need GI embolization. Dr. Boucher will contact me if GI embolization required.
[2018-11-18] MEDS: NACL 0.9% 1000 ML 1,000 ML IV SCH ×3 (15:34→22:59)
[2018-11-18] MEDS ORDERED: WATER FOR IRRIG STERILE IR ONE (15:46)
[2018-11-18] MEDS ORDERED: DIPRIVAN 10 MG/ML IV ONE ×2 (15:48→15:53)
--- NOTE | 2018-11-18 16:23 | Post Operative Note ---
Pre-op diagnosis: GI Bleed Post-op diagnosis: other (Gastric Ulcer with hemorrhage) Findings: 1. Massive clot in the stomach; could not see parts of fundus and body 2. Previous ulcer site seen with visible vessel; only 1 clip from previous endoscopy noted - Attempted to deploy 2 clips across visible vessel; one did not adhere (friable mucosa) but one did deploy across the vessel with no further active bleed 3. Duodenum and antrum without lesion; cardia of stomach without lesion 4. Esophagus normal Procedure: EGD with endoscopic clipping for bleeding control Anesthesia: MAC Surgeon: JUAN MIGUEL BRIDGES Estimated blood loss: minimal Pathology: none Specimen disposition: other (N/A) Condition: stable Disposition: other (Recs: 1. Discussed with IR; given rebleed with large volume of bleeding, would recommend IR embolization. 2. Will keep NPO until embilization. 3. Avoid all NSAIDs. 4. Continue protonix drip. 5. Clear liquid diet after embolization if OK with IR.)
--- NOTE | 2018-11-18 16:25 | Anesthesia Day of Surgery ---
Anesthesia Day of Surgery - Day of Surgery Patient Examined: Yes Patient H&P Reviewed: Yes Patient is NPO: Yes
--- NOTE | 2018-11-18 16:25 | Anesthesia Consultation ---
Anesthesia Consult and Med Hx Date of service: 11/18/18 - Airway Anesthetic Teeth Evaluation: Good ROM Head & Neck: Adequate Mental/Hyoid Distance: Adequate Mallampati Class: Class II Intubation Access Assessment: Probably Good - Pre-Operative Health Status ASA Pre-Surgery Classification: ASA2, Emergency Proposed Anesthetic Plan: MAC - Pulmonary Hx Smoking: Yes Hx Asthma: No COPD: No Hx Pneumonia: No - Cardiovascular System Hx Hypertension: No - Central Nervous System Hx Seizures: No Hx Psychiatric Problems: No - Endocrine Hx Renal Disease: No Hx End Stage Renal Disease: No Hx Hypothyroidism: No Hx Hyperthyroidism: No - Hematic Hx Anemia: No Hx Sickle Cell Disease: No - Other Systems Hx Alcohol Use: No Hx Cancer: No
--- NOTE | 2018-11-18 16:26 | Post Anesthesia Evaluation ---
- Post Anesthesia Evaluation Patient Participated: Yes (sleeping) Airway Patent: Yes Stable Respiratory Function: Yes Nausea/Vomiting: No Temp > 96.8F: Yes Pain Manageable: Yes Adequeate Hydration: Yes Anesthesia Complications: No Block Receding Appropriately: Not Applicable Patient on Ventilator: No
--- NOTE | 2018-11-18 17:12 | Operative Report ---
PROCEDURE PERFORMED: Esophagogastroduodenoscopy with endoscopic clipping for bleeding control. PREOPERATIVE DIAGNOSIS: History of gastric ulcer with acute hemorrhage. POSTOPERATIVE DIAGNOSIS: Gastric ulcer with evidence of recent bleeding. ENDOSCOPIST: Zuhair Boucher MD INSTRUMENT: Gamar video endoscope. MEDICATIONS: MAC anesthesia by Anesthesia Services. COMPLICATIONS: No apparent complications. ESTIMATED BLOOD LOSS: Minimal. SPECIMENS: None. IMPLANTS: Endoscopic clip x 2 applied to a gastric ulcer/visible vessel, but due to the friable nature of the tissue, only one of the clips was adherent to the vessel. ASSISTANTS: None. CONDITION AT COMPLETION: Stable. TECHNIQUE: The patient was informed of the risks and benefits of the procedure. She signed the informed consent to proceed. She was placed in the left lateral decubitus position. The above sedative medications were given. Her vital signs remained stable throughout the procedure. The instrument was advanced from the mouth to the second portion of the duodenum under direct visualization. At that point, the bowel was insufflated and the endoscope was slowly withdrawn. FINDINGS: 1. Normal duodenum and antrum except for some mild fresh blood, which was easily lavaged away. 2. Massive clot in the upper part of the stomach; we could not visualize all of the fundus and body, but they had been seen relatively well at the previous upper endoscopy 2 days ago. 3. The previous ulcer site was seen in the stomach on the greater curve in the body with a visible vessel at the base. a. Only one endoscopic clip from the previous procedure was noted. b. We performed endoscopic clipping across the visible vessel x 2; one endoscopic clip did not adhere due to the friable nature of the tissue. c. There was no evidence of active large volume hemorrhage at the end of the procedure. 4. Normal cardia of the stomach and normal esophagus. RECOMMENDATIONS: 1. I have discussed the case with Interventional Radiology; given the patient's active rebleeding with large volume of blood, with need for transfusion, I would recommend embolization of the underlying vessel. I feel that the endoscopic clipping, due to the friable nature of the tissue, may not be sufficient and the patient has already failed cautery of the area. 2. We will keep the patient nothing by mouth until her embolization. 3. Avoid all nonsteroidal anti-inflammatory drugs. 4. Continue Protonix drip. 5. Clear liquid diet until after embolization. JOB# [id number] E/NTS
--- NOTE | 2018-11-18 17:32 | Consultation ---
History of Present Illness - Reason for Consult Consult date: 11/18/18 GI bleed Requesting physician: JUAN MIGUEL FRANKLIN - History of Present Illness The patient was seen earlier this week for a bleeding gastric ulcer from excess ibuprofen use. She had cautery of visible vessel in the stomach, but no other lesions were seen. She went home and says no NSAIDS/compliant with omeprazole, but returned to the ER this AM because of recurrent hematemesis. There was no severe abdominal pain, just severe nausea. She has had melena. There is no CP or SOB, but she did have pre-syncope with the emesis. The patient just had an endoscopy which demonstrated a large amount of blood in the stomach placing her at high risk for possibly requiring surgery. An endo- clip was placed at the ulcer site. Discussed with the patient the risks, benefits, and alternatives of the procedure. Past History Past Medical History: other (GI bleed) Past Surgical History: No surgical history Social history: smoking (ciagrettes, methamphetamine), full code. denies: alcohol abuse, prescription drug abuse, IV drug use Family history: no significant family history Medications and Allergies Allergies Allergy/AdvReac Type Severity Reaction Status Date / Time No Known Allergies Allergy Verified 06/08/17 09:22 Home Medications Medication Instructions Recorded Confirmed Last Taken Type Ferrous Sulfate 325 mg PO BID #60 tablet. 11/17/18 11/18/18 Unknown Rx Pantoprazole [Protonix TAB] 40 mg PO QDAY #30 tablet 11/17/18 11/18/18 11/17/18 Rx 0800 Active Meds: Active Medications Pantoprazole Sodium 80 mg/ (Sodium Chloride) 100 mls @ 10 mls/hr IV DIRECT JUAN DANIEL Last Admin: 11/18/18 08:37 Dose: 8 mg/hr, 10 mls/hr Documented by: Sodium Chloride (Nacl 0.9% 1000 Ml) 1,000 mls @ 50 mls/hr IV DIRECT JUAN DANIEL Last Admin: 11/18/18 17:09 Dose: 50 mls/hr Documented by: Review of Systems All systems: negative (see HPI) Exam - Constitutional Vitals: Temp Pulse Resp BP Pulse Ox 98.8 F 101 H 14 96/50 100 11/18/18 16:06 11/18/18 16:06 11/18/18 16:06 11/18/18 16:06 11/18/18 16:06 General appearance: Present: no acute distress - EENT Eyes: Present: EOM intact ENT: hearing intact - Respiratory Respiratory effort: normal - Abdominal General gastrointestinal: Present: soft - Psychiatric Psychiatric: appropriate mood/affect, cooperative Results - Labs CBC & Chem 7: 11/18/18 06:26 11/18/18 06:26 Labs: Abnormal lab results 11/18/18 11/18/18 11/18/18 Range/Units 06:26 06:26 06:26 RBC 2.74 L (3.65-5.03) M/mm3 Hgb 5.8 L* (10.1-14.3) gm/dl Hct 18.7 L* (30.3-42.9) % MCV 68 L (79-97) fl MCH 21 L (28-32) pg RDW 19.1 H (13.2-15.2) % PT 15.0 H (12.2-14.9) Sec. Carbon Dioxide 17 L (22-30) mmol/L Glucose 181 H (65-100) mg/dL Calcium 8.1 L (8.4-10.2) mg/dL Total Protein 5.1 L (6.3-8.2) g/dL Albumin 3.0 L (3.9-5) g/dL Crossmatch 11/18/18 Range/Units 06:26 RBC (3.65-5.03) M/mm3 Hgb (10.1-14.3) gm/dl Hct (30.3-42.9) % MCV (79-97) fl MCH (28-32) pg RDW (13.2-15.2) % PT (12.2-14.9) Sec. Carbon Dioxide (22-30) mmol/L Glucose (65-100) mg/dL Calcium (8.4-10.2) mg/dL Total Protein (6.3-8.2) g/dL Albumin (3.9-5) g/dL Crossmatch See Detail Assessment and Plan 33-year-old female with upper GI bleed from a ulcer along the greater curvature of the stomach which has been treated with endoscopy twice, and she had a stom ach for blood with severe anemia. Patient is at high risk for complications without additional therapy. Dr. franklin and I both feel that angiography and embolization provides her the most minimally invasive way to prevent further bleeding. If she bleeds again, she may require surgery. Plan for angiography with possible embolization.
[2018-11-18] MEDS ORDERED: ANCEF/STERILE WATER 2 GM/20 ML 2 GM/20 ML SYRINGE IV ONE (17:43)
[2018-11-18] MEDS ORDERED: HEPARIN/NS 5000 UNIT/500ML(CATH LAB) 0 ML IR ONE (17:43)
[2018-11-18] MEDS ORDERED: NACL 0.9% 500 ML 500 ML ONE (17:49)
[2018-11-18] MEDS ORDERED: HEPARIN/NS 5000 UNIT/500ML(CATH LAB) 1,000 ML IR ONE (17:49)
[2018-11-18] MEDS: VERSED ONE ×4 (18:16→19:26)
[2018-11-18] MEDS: SUBLIMAZE ONE ×3 (18:16→19:26)
[2018-11-18] MEDS: XYLOCAINE 2% INFILTRATI ONE ×3 (18:16→19:24)
[2018-11-18] MEDS: GELFOAM TP ONE ×2 (18:53→19:04)
--- NOTE | 2018-11-18 19:45 | Operative Report ---
Operative Report Operative Report: EXAM: 1. Ultrasound-guided access of the right common femoral artery. 2. Angiography of the right lower extremity. 3. Selection of the SMA with angiography. 4. Selection of the celiac artery with angiography. 5. Selection of the left gastric artery with angiography. 6. Super selection of the superior branch of the left gastric artery with angiography. 7. [place]oam embolization of the superior branch of the left gastric artery with subsequent coil embolization with a 2 mm x 6 cm coil. 8. Super selection of the lower branch of the left gastric artery was angiography. 9. Gelfoam embolization of the lower branch of the left gastric artery with subsequent coil embolization with a 2 mm x 6 cm coil. 10. Gelfoam embolization of the main left gastric artery. 11. Selection of the distal left hepatic artery with angiography 12. Closure of the right common femoral artery with 6 Indonesian Pro-glide DATE: 11/18/18 BOTTLING EQUIPMENT SALES REPRESENTATIVE: BLUE CALABRESE MD INDICATION: Refractory GI bleed with ulcer in the proximal portion of the stomach with [address] Large amount of blood in the stomach. MEDICATIONS: Please see nursing report for full details. DEVICES: 2 mm x 6 cm interlock coil (2) CONTRAST: 155 mL of nonionic contrast PROCEDURE: The risks, benefits, and alternatives were discussed with the patient; written informed consent was obtained. The groins are prepped and draped in a sterile fashion. Under direct ultrasound guidance, the right common femoral artery was evaluated and was patent. Under direct ultrasound guidance, the right common femoral artery was accessed with a 21-gauge micropuncture needle. 0.018 inch wire was passed into the aorta. He was exchanged for transitional dilator. Wires exchanged for 0.035 inch wire. Transitional dilator was exchanged for a 5 Indonesian sheath. Digital subtraction angiography was performed of initiating an appropriate puncture, above the bifurcation and below the inferior epigastric artery. The right external iliac artery, common femoral artery, proximal superficial femoral artery, and profundofemoral artery were patent. The abdominal aorta was selected and then the SMA was selected with a SOS 2 catheter. Digital subtraction angiography was performed demonstrating a normal branching pattern without supply to the stomach. The celiac artery selected and digital subtraction angiography was performed demonstrating the left gastric artery was feeding the area of the stomach overlying the endoscopically placed clips. No active extravasation or pseudoaneurysm. 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 The left gastric artery was selected with a microcatheter, renegade STC and a 0.014 inch wire. This was passed coaxially in the base catheter. Digital subtraction angiography was performed confirming position in the left gastric artery the dominant branches was a superior branch and an inferior branch of the left gastric artery which provided flow to the area overlying the clips. The superior branch of the left gastric artery was selected and digital subtraction angiography was performed confirming position. Gelfoam embolization was performed with intermittent angiography until stasis was achieved. 2 mm x 6 cm interlock coil was then deployed. The lower branch of the left gastric artery was selected and digital subtraction angiography was performed confirming position. Gelfoam embolization was performed with intermittent angiography until stasis was achieved. 2 mm x 6 cm interlock coil was then deployed. The catheter was then retracted to the main left gastric artery. Digital subtraction angiography was performed confirming position. Gelfoam embolization was performed until stasis was achieved. The microcatheter was removed in the base catheter was aspirated multiple times. Afterwards, digital subtraction angiography was performed again with power injection demonstrating no flow through the left gastric artery. 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 Given the anomalous branching pattern I wanted to ensure that there was not an anomalous branch from the left hepatic artery supplying the stomach. I then selected the left hepatic artery with the microcatheter and went into a distal branch. Digital subtraction angiography was performed to this branch which was the branch that overlap the clip. I then changed position in an SHERYL and LYONS fashion and the branch did not overlap the clip and supplied the liver. At this point, the microcatheter was removed in the base catheter was removed over a wire. Sheath was then exchanged for 6 Indonesian Pro-glide which was used to achieve immediate hemostasis. Sterile dressing applied. FINDINGS: Please see procedure note above. IMPRESSION: 1. Successful GI embolization of the left gastric artery branches as described above which supplied the area of the stomach overlapping the endoscopically placed clip.
[2018-11-18] MEDS ORDERED: DILAUDID ONE (20:03)
[2018-11-18 21:59] LABS: Hematocrit 24.8 % (30.3-42.9); Hemoglobin 8.3 gm/dl (10.1-14.3)
[2018-11-18] MEDS: DILAUDID IV PRN (22:59)
[2018-11-19] MEDS: DILAUDID IV PRN ×3 (01:03→08:16)
[2018-11-19 01:09] LABS: Hematocrit 23.7 % (30.3-42.9); Hemoglobin 7.8 gm/dl (10.1-14.3)
[2018-11-19] MEDS ORDERED: DILAUDID IV PRN (08:16)
[2018-11-19 10:00] LABS: Hematocrit 23.7 % (30.3-42.9); Hemoglobin 7.6 gm/dl (10.1-14.3)
--- NOTE | 2018-11-19 10:29 | Gastroenterology Progress Note ---
Assessment and Plan - Patient Problems (1) Gastric ulcer with hemorrhage Current Visit: Yes Status: Acute Plan to address problem: EGD on 11/18/2018 1. Massive clot in the stomach; could not see parts of fundus and body 2. Previous ulcer site seen with visible vessel; only 1 clip from previous endoscopy noted - Attempted to deploy 2 clips across visible vessel; one did not adhere (friable mucosa) but one did deploy across the vessel with no further active bleed 3. Duodenum and antrum without lesion; cardia of stomach without lesion 4. Esophagus normal - s/p IR embolization of left gastric artery. - H/H stable. - continue with PPI IV. - monitor H/H. - if H/H stable and no signs of bleeding, advance diet as tolerated. - will sign off at this time. Please call with questions. Subjective Date of service: 11/19/18 Interval history: Patient underwent IR embolization successfully. No bowel movement overnight. Objective - Constitutional Vitals: Temp Pulse Resp BP Pulse Ox 98.7 F 95 H 24 132/94 100 11/19/18 04:00 11/19/18 05:00 11/19/18 05:00 11/19/18 04:10 11/19/18 05:00 - EENT ENT: hearing intact, clear oral mucosa, dentition normal - Neck Neck: supple, normal ROM - Respiratory Respiratory effort: normal Respiratory: bilateral: CTA - Cardiovascular Rhythm: regular - Extremities Extremities: pulses intact, No edema, normal color, Full ROM - Gastrointestinal General gastrointestinal: Present: soft, non-tender, non-distended, normal bowel sounds - Integumentary Integumentary: Present: clear, warm, dry - Neurologic Neurological: alert and oriented x3 - Labs CBC & Chem 7: 11/19/18 16:05 11/18/18 06:26 Labs: Laboratory Results - last 24 hr 11/18/18 11/18/18 11/19/18 06:26 21:41 00:46 Hgb 8.3 L 7.8 L Hct 24.8 L D 23.7 L Blood Type B POSITIVE Antibody Screen Negative Crossmatch See Detail 11/19/18 09:38 Hgb 7.6 L Hct 23.7 L Blood Type Antibody Screen Crossmatch
[2018-11-19] MEDS: ROXICODONE PO PRN ×2 (13:07→21:08)
[2018-11-19] MEDS: NACL 0.9% 1000 ML 1,000 ML IV SCH (13:09)
--- NOTE | 2018-11-19 14:19 | Progress Note ---
Assessment and Plan Assessment and plan: Recurrent upper GI bleed - Patient is on IV Protonix - GI Was consulted and did EGD morning findings as stated below; 1. Massive clot in the stomach; could not see parts of fundus and body 2. Previous ulcer site seen with visible vessel; only 1 clip from previous endoscopy noted - Attempted to deploy 2 clips across visible vessel; one did not adhere (friable mucosa) but one did deploy across the vessel with no further active bleed 3. Duodenum and antrum without lesion; cardia of stomach without lesion 4. Esophagus normal Procedure: - EGD with endoscopic clipping for bleeding control - Avoid all NSAIDs. - Continue protonix drip. - IR consulted and did left gastric artery embolization. Severe anemia - Hemoglobin was 5.8 at presentation - Transfused 2 units of blood and her hemoglobin this morning was 7.6. will monitor Disposition - Continue IMCU care History Interval history: Patient was seen in neurology this morning, patient is complaining pain in the groin area where femoral cath was done. Hospitalist Physical - Physical exam Narrative exam: Not in cardiopulmonary distress. The patient is obese. Vital signs as documented. Head exam is unremarkable. No scleral icterus . Neck is without jugular venous distension, thyromegaly, or carotid bruits. Lungs are clear to auscultation. Cardiac exam reveals regular rate and Rhythm. First and second heart sounds normal. No murmurs, rubs or gallops. Abdominal exam reveals normal bowel sounds, no masses, no organomegaly and no aortic enlargement. Extremities are nonedematous and both femoral and pedal pulses are normal. FRANCHISE DEVELOPMENT MANAGER: Alert and oriented 3. No focal weakness. - Constitutional Vitals: Temp Pulse Resp BP Pulse Ox 98.7 F 95 H 24 132/94 100 11/19/18 04:00 11/19/18 05:00 11/19/18 05:00 11/19/18 04:10 11/19/18 10:00 General appearance: Present: no acute distress Results - Labs CBC & Chem 7: 11/19/18 09:38 11/18/18 06:26 Labs: Laboratory Last Values WBC 9.8 K/mm3 (4.5-11.0) 11/18/18 06:26 RBC 2.74 M/mm3 (3.65-5.03) L 11/18/18 06:26 Hgb 7.6 gm/dl (10.1-14.3) L 11/19/18 09:38 Hct 23.7 % (30.3-42.9) L 11/19/18 09:38 MCV 68 fl (79-97) L 11/18/18 06:26 MCH 21 pg (28-32) L 11/18/18 06:26 MCHC 31 % (30-34) 11/18/18 06:26 RDW 19.1 % (13.2-15.2) H 11/18/18 06:26 Plt Count 322 K/mm3 (140-440) 11/18/18 06:26 Lymph % (Auto) 28.2 % (13.4-35.0) 11/18/18 06:26 [place] % (Auto) 5.0 % (0.0-7.3) 11/18/18 06:26 Eos % (Auto) 3.8 % (0.0-4.3) 11/18/18 06:26 Baso % (Auto) 0.9 % (0.0-1.8) 11/18/18 06:26 Lymph # 2.8 K/mm3 (1.2-5.4) 11/18/18 06:26 [place] # 0.5 K/mm3 (0.0-0.8) 11/18/18 06:26 Eos # 0.4 K/mm3 (0.0-0.4) 11/18/18 06:26 Baso # 0.1 K/mm3 (0.0-0.1) 11/18/18 06:26 Seg Neutrophils % 62.1 % (40.0-70.0) 11/18/18 06:26 Seg Neutrophils # 6.1 K/mm3 (1.8-7.7) 11/18/18 06:26 PT 15.0 Sec. (12.2-14.9) H 11/18/18 06:26 INR 1.11 (0.87-1.13) 11/18/18 06:26 APTT 25.2 Sec. (24.2-36.6) 11/18/18 06:26 Sodium 140 mmol/L (137-145) 11/18/18 06:26 Potassium 3.8 mmol/L (3.6-5.0) 11/18/18 06:26 Chloride 106.4 mmol/L (98-107) 11/18/18 06:26 Carbon Dioxide 17 mmol/L (22-30) L 11/18/18 06:26 Anion Gap 20 mmol/L 11/18/18 06:26 BUN 14 mg/dL (7-17) 11/18/18 06:26 Creatinine 0.7 mg/dL (0.7-1.2) 11/18/18 06:26 Estimated GFR > 60 ml/min 11/18/18 06:26 BUN/Creatinine Ratio 20 % 11/18/18 06:26 Glucose 181 mg/dL (65-100) H 11/18/18 06:26 Calcium 8.1 mg/dL (8.4-10.2) L 11/18/18 06:26 Total Bilirubin < 0.20 mg/dL (0.1-1.2) 11/18/18 06:26 AST 34 units/L (5-40) 11/18/18 06:26 ALT 24 units/L (7-56) 11/18/18 06:26 Alkaline Phosphatase 63 units/L (35-129) 11/18/18 06:26 Total Protein 5.1 g/dL (6.3-8.2) L 11/18/18 06:26 Albumin 3.0 g/dL (3.9-5) L 11/18/18 06:26 Albumin/Globulin Ratio 1.4 % 11/18/18 06:26 Lipase 54 units/L (13-60) 11/18/18 06:26 HCG, Qual Negative (Negative) 11/18/18 06:26 Blood Type B POSITIVE 11/18/18 06:26 Antibody Screen Negative 11/18/18 06:26 Crossmatch See Detail 11/18/18 06:26
[2018-11-19 16:43] LABS: Hematocrit 25.5 % (30.3-42.9); Hemoglobin 8.1 gm/dl (10.1-14.3)
[2018-11-20] MEDS: ROXICODONE PO PRN ×3 (04:09→19:51)
[2018-11-20] MEDS: NACL 0.9% 1000 ML 1,000 ML IV SCH (04:10)
[2018-11-20] MEDS: PROTONIX 80 MG in NACL 0.9% 100 ML IV SCH ×2 (04:55→14:30)
[2018-11-20 06:15] LABS: Basophils % (Auto) 0.5 % (0.0-1.8); Eosinophils # (Auto) 0.4 K/mm3 (0.0-0.4); Eosinophils % (Auto) 4.2 % (0.0-4.3); Hematocrit 24.7 % (30.3-42.9); Hemoglobin 8.2 gm/dl (10.1-14.3); Lymphocytes # (Auto) 1.6 K/mm3 (1.2-5.4); Lymphocytes % (Auto) 18.4 % (13.4-35.0); Mean Corpuscular HGB Conc 33 % (30-34); Mean Corpuscular Volume 75 fl (79-97); Monocytes # (Auto) 0.5 K/mm3 (0.0-0.8); Monocytes % (Auto) 5.6 % (0.0-7.3); Platelet Count 323 K/mm3 (140-440); Red Blood Count 3.31 M/mm3 (3.65-5.03)
[2018-11-20 06:22] LABS: Red Cell Distribution Width 22.3 % (13.2-15.2)
[2018-11-20 06:23] LABS: BUN/Creatinine Ratio 12; Blood Urea Nitrogen 6 mg/dL (7-17); Calcium 8.3 mg/dL (8.4-10.2); Hemolysis Index 0
--- NOTE | 2018-11-20 12:26 | Progress Note ---
Assessment and Plan Assessment and plan: Recurrent upper GI bleed - Patient is on IV Protonix - GI Was consulted and did EGD morning findings as stated below; 1. Massive clot in the stomach; could not see parts of fundus and body 2. Previous ulcer site seen with visible vessel; only 1 clip from previous endoscopy noted - Attempted to deploy 2 clips across visible vessel; one did not adhere (friable mucosa) but one did deploy across the vessel with no further active bleed 3. Duodenum and antrum without lesion; cardia of stomach without lesion 4. Esophagus normal Procedure: - EGD with endoscopic clipping for bleeding control - Avoid all NSAIDs. - Continue protonix drip. - IR consulted and did left gastric artery embolization. Severe anemia - Hemoglobin was 5.8 at presentation - Transfused 2 units of blood and her hemoglobin this morning was 8. will monitor Disposition - Continue IMCU care History Interval history: Patient was seen in neurology this morning, patient didn't have bleeding. No new complaints. Hospitalist Physical - Physical exam Narrative exam: Not in cardiopulmonary distress. The patient is obese. Vital signs as documented. Head exam is unremarkable. No scleral icterus . Neck is without jugular venous distension, thyromegaly, or carotid bruits. Lungs are clear to auscultation. Cardiac exam reveals regular rate and Rhythm. First and second heart sounds normal. No murmurs, rubs or gallops. Abdominal exam reveals normal bowel sounds, no masses, no organomegaly and no aortic enlargement. Extremities are nonedematous and both femoral and pedal pulses are normal. POT HOLDER BINDER: Alert and oriented 3. No focal weakness. - Constitutional Vitals: Temp Pulse Resp BP Pulse Ox 99.1 F 80 14 119/67 98 11/20/18 04:05 11/20/18 06:00 11/20/18 06:00 11/20/18 04:11 11/20/18 08:23 General appearance: Present: no acute distress Results - Labs CBC & Chem 7: 11/20/18 05:39 11/20/18 05:39 Labs: Laboratory Last Values WBC 8.7 K/mm3 (4.5-11.0) 11/20/18 05:39 RBC 3.31 M/mm3 (3.65-5.03) L 11/20/18 05:39 Hgb 8.2 gm/dl (10.1-14.3) L 11/20/18 05:39 Hct 24.7 % (30.3-42.9) L 11/20/18 05:39 MCV 75 fl (79-97) L 11/20/18 05:39 MCH 25 pg (28-32) L 11/20/18 05:39 MCHC 33 % (30-34) 11/20/18 05:39 RDW 22.3 % (13.2-15.2) H 11/20/18 05:39 Plt Count 323 K/mm3 (140-440) 11/20/18 05:39 Lymph % (Auto) 18.4 % (13.4-35.0) 11/20/18 05:39 [place] % (Auto) 5.6 % (0.0-7.3) 11/20/18 05:39 Eos % (Auto) 4.2 % (0.0-4.3) 11/20/18 05:39 Baso % (Auto) 0.5 % (0.0-1.8) 11/20/18 05:39 Lymph # 1.6 K/mm3 (1.2-5.4) 11/20/18 05:39 [place] # 0.5 K/mm3 (0.0-0.8) 11/20/18 05:39 Eos # 0.4 K/mm3 (0.0-0.4) 11/20/18 05:39 Baso # 0.0 K/mm3 (0.0-0.1) 11/20/18 05:39 Seg Neutrophils % 71.3 % (40.0-70.0) H 11/20/18 05:39 Seg Neutrophils # 6.2 K/mm3 (1.8-7.7) 11/20/18 05:39 PT 15.0 Sec. (12.2-14.9) H 11/18/18 06:26 INR 1.11 (0.87-1.13) 11/18/18 06:26 APTT 25.2 Sec. (24.2-36.6) 11/18/18 06:26 Sodium 140 mmol/L (137-145) 11/20/18 05:39 Potassium 4.1 mmol/L (3.6-5.0) 11/20/18 05:39 Chloride 105.1 mmol/L (98-107) 11/20/18 05:39 Carbon Dioxide 27 mmol/L (22-30) D 11/20/18 05:39 Anion Gap 12 mmol/L 11/20/18 05:39 BUN 6 mg/dL (7-17) L 11/20/18 05:39 Creatinine 0.5 mg/dL (0.7-1.2) L 11/20/18 05:39 Estimated GFR > 60 ml/min 11/20/18 05:39 BUN/Creatinine Ratio 12 % 11/20/18 05:39 Glucose 105 mg/dL (65-100) H 11/20/18 05:39 Calcium 8.3 mg/dL (8.4-10.2) L 11/20/18 05:39 Total Bilirubin < 0.20 mg/dL (0.1-1.2) 11/18/18 06:26 AST 34 units/L (5-40) 11/18/18 06:26 ALT 24 units/L (7-56) 11/18/18 06:26 Alkaline Phosphatase 63 units/L (35-129) 11/18/18 06:26 Total Protein 5.1 g/dL (6.3-8.2) L 11/18/18 06:26 Albumin 3.0 g/dL (3.9-5) L 11/18/18 06:26 Albumin/Globulin Ratio 1.4 % 11/18/18 06:26 Lipase 54 units/L (13-60) 11/18/18 06:26 HCG, Qual Negative (Negative) 11/18/18 06:26 Blood Type B POSITIVE 11/18/18 06:26 Antibody Screen Negative 11/18/18 06:26 Crossmatch See Detail 11/18/18 06:26
[2018-11-21 06:28] LABS: Hematocrit 22.1 % (30.3-42.9); Hemoglobin 7.3 gm/dl (10.1-14.3)
[2018-11-21] MEDS: ROXICODONE PO PRN ×3 (08:29→23:22)
[2018-11-21] MEDS: PROTONIX IV SCH ×2 (09:05→22:33)
--- NOTE | 2018-11-21 16:59 | Progress Note ---
Assessment and Plan Assessment and plan: Recurrent upper GI bleed - Patient is on IV Protonix - GI Was consulted and did EGD morning findings as stated below; 1. Massive clot in the stomach; could not see parts of fundus and body 2. Previous ulcer site seen with visible vessel; only 1 clip from previous endoscopy noted - Attempted to deploy 2 clips across visible vessel; one did not adhere (friable mucosa) but one did deploy across the vessel with no further active bleed 3. Duodenum and antrum without lesion; cardia of stomach without lesion 4. Esophagus normal Procedure: - EGD with endoscopic clipping for bleeding control - Avoid all NSAIDs. - Continue protonix drip. - IR consulted and did left gastric artery embolization. Severe anemia - Hemoglobin was 5.8 at presentation - Transfused 2 units of blood and her hemoglobin yesterday was 8 and today 7.3 - Will monitor H/H in the morning if stable D/C. Disposition - Continue IMCU care. History Interval history: Patient was seen and evaluated this morning, patient is on period and her H/H is trending down. Hospitalist Physical - Physical exam Narrative exam: Not in cardiopulmonary distress. The patient is obese. Vital signs as documented. Head exam is unremarkable. No scleral icterus . Neck is without jugular venous distension, thyromegaly, or carotid bruits. Lungs are clear to auscultation. Cardiac exam reveals regular rate and Rhythm. First and second heart sounds normal. No murmurs, rubs or gallops. Abdominal exam reveals normal bowel sounds, no masses, no organomegaly and no aortic enlargement. Extremities are nonedematous and both femoral and pedal pulses are normal. WEB MARKETING SPECIALIST: Alert and oriented 3. No focal weakness. - Constitutional Vitals: Temp Pulse Resp BP Pulse Ox 98.6 F 106 H 14 106/51 100 11/21/18 16:00 11/21/18 16:21 11/21/18 16:21 11/21/18 16:21 11/21/18 16:21 General appearance: Present: no acute distress Results - Labs CBC & Chem 7: 11/21/18 05:36 11/20/18 05:39 Labs: Laboratory Last Values WBC 8.7 K/mm3 (4.5-11.0) 11/20/18 05:39 RBC 3.31 M/mm3 (3.65-5.03) L 11/20/18 05:39 Hgb 7.3 gm/dl (10.1-14.3) L 11/21/18 05:36 Hct 22.1 % (30.3-42.9) L 11/21/18 05:36 MCV 75 fl (79-97) L 11/20/18 05:39 MCH 25 pg (28-32) L 11/20/18 05:39 MCHC 33 % (30-34) 11/20/18 05:39 RDW 22.3 % (13.2-15.2) H 11/20/18 05:39 Plt Count 323 K/mm3 (140-440) 11/20/18 05:39 Lymph % (Auto) 18.4 % (13.4-35.0) 11/20/18 05:39 [place] % (Auto) 5.6 % (0.0-7.3) 11/20/18 05:39 Eos % (Auto) 4.2 % (0.0-4.3) 11/20/18 05:39 Baso % (Auto) 0.5 % (0.0-1.8) 11/20/18 05:39 Lymph # 1.6 K/mm3 (1.2-5.4) 11/20/18 05:39 [place] # 0.5 K/mm3 (0.0-0.8) 11/20/18 05:39 Eos # 0.4 K/mm3 (0.0-0.4) 11/20/18 05:39 Baso # 0.0 K/mm3 (0.0-0.1) 11/20/18 05:39 Seg Neutrophils % 71.3 % (40.0-70.0) H 11/20/18 05:39 Seg Neutrophils # 6.2 K/mm3 (1.8-7.7) 11/20/18 05:39 PT 15.0 Sec. (12.2-14.9) H 11/18/18 06:26 INR 1.11 (0.87-1.13) 11/18/18 06:26 APTT 25.2 Sec. (24.2-36.6) 11/18/18 06:26 Sodium 140 mmol/L (137-145) 11/20/18 05:39 Potassium 4.1 mmol/L (3.6-5.0) 11/20/18 05:39 Chloride 105.1 mmol/L (98-107) 11/20/18 05:39 Carbon Dioxide 27 mmol/L (22-30) D 11/20/18 05:39 Anion Gap 12 mmol/L 11/20/18 05:39 BUN 6 mg/dL (7-17) L 11/20/18 05:39 Creatinine 0.5 mg/dL (0.7-1.2) L 11/20/18 05:39 Estimated GFR > 60 ml/min 11/20/18 05:39 BUN/Creatinine Ratio 12 % 11/20/18 05:39 Glucose 105 mg/dL (65-100) H 11/20/18 05:39 Calcium 8.3 mg/dL (8.4-10.2) L 11/20/18 05:39 Total Bilirubin < 0.20 mg/dL (0.1-1.2) 11/18/18 06:26 AST 34 units/L (5-40) 11/18/18 06:26 ALT 24 units/L (7-56) 11/18/18 06:26 Alkaline Phosphatase 63 units/L (35-129) 11/18/18 06:26 Total Protein 5.1 g/dL (6.3-8.2) L 11/18/18 06:26 Albumin 3.0 g/dL (3.9-5) L 11/18/18 06:26 Albumin/Globulin Ratio 1.4 % 11/18/18 06:26 Lipase 54 units/L (13-60) 11/18/18 06:26 HCG, Qual Negative (Negative) 11/18/18 06:26 Blood Type B POSITIVE 11/18/18 06:26 Antibody Screen Negative 11/18/18 06:26 Crossmatch See Detail 11/18/18 06:26
--- NOTE | 2018-11-21 19:35 | Gastroenterology Progress Note ---
Assessment and Plan - Patient Problems (1) Gastric ulcer with hemorrhage Current Visit: Yes Status: Acute Plan to address problem: EGD on 11/18/2018 1. Massive clot in the stomach; could not see parts of fundus and body 2. Previous ulcer site seen with visible vessel; only 1 clip from previous endoscopy noted - Attempted to deploy 2 clips across visible vessel; one did not adhere (friable mucosa) but one did deploy across the vessel with no further active bleed 3. Duodenum and antrum without lesion; cardia of stomach without lesion 4. Esophagus normal - s/p IR embolization of left gastric artery. - H/H trended down slightly today but no signs of active bleeding. - continue with PPI IV. - monitor H/H. - If H/H stable tomorrow, ok for discharge per GI standpoint and follow up outpatient. - will sign off. Please call with questions. Subjective Date of service: 11/21/18 Interval history: No bowel movement overnight. On menstrual period. Tolerating diet well. Objective - Constitutional Vitals: Temp Pulse Resp BP Pulse Ox 98.6 F 97 H 14 121/51 100 11/21/18 16:00 11/21/18 18:21 11/21/18 18:21 11/21/18 18:21 11/21/18 18:21 - EENT ENT: hearing intact, clear oral mucosa, dentition normal - Neck Neck: supple, normal ROM - Respiratory Respiratory effort: normal Respiratory: bilateral: CTA - Cardiovascular Rhythm: regular - Extremities Extremities: pulses intact, No edema, normal color, Full ROM - Gastrointestinal General gastrointestinal: Present: soft, non-tender, non-distended, normal bowel sounds - Integumentary Integumentary: Present: clear, warm, dry - Neurologic Neurological: alert and oriented x3 - Labs CBC & Chem 7: 11/21/18 05:36 11/20/18 05:39 Labs: Laboratory Results - last 24 hr 11/21/18 05:36 Hgb 7.3 L Hct 22.1 L
[2018-11-21] MEDS: PROTONIX PO SCH (22:33)
[2018-11-22 06:14] LABS: Hematocrit 21.2 % (30.3-42.9); Hemoglobin 6.9 gm/dl (10.1-14.3)
[2018-11-22] MEDS ORDERED: NACL 0.9% 500 ML 500 ML IV NR (08:42)
[2018-11-22] MEDS: ROXICODONE PO PRN ×3 (10:34→23:38)
[2018-11-22] MEDS: HABITROL TD SCH (10:35)
[2018-11-22] MEDS: PROTONIX PO SCH ×2 (10:35→21:31)
--- NOTE | 2018-11-22 10:52 | Progress Note ---
Assessment and Plan Assessment and plan: 33-year-old -[place] female with no significant past medical history was presented to the emergency department with complaints of hematemesis 2. She said it was my feeling is that the patient become woozy. Patient was discharged from the hospital after she was monitored for upper GI bleed secondary to ulcer due to NSAIDs. H&H was stable at the time of discharge. Patient said she went home and started to smoke cigarettes, but denied use of alcohol or NSAIDs. Patient denied chest pain, shortness of breath. She said she had 3 episodes of melena. Patient sent there is blood transfusions in the ED and admitted to MICU. She proceeded to have an EGD that revealed. 1. Massive clot in the stomach; could not see parts of fundus and body 2. Previous ulcer site seen with visible vessel; only 1 clip from previous endoscopy noted - Attempted to deploy 2 clips across visible vessel; one did not adhere (friable mucosa) but one did deploy across the vessel with no further active bleed 3. Duodenum and antrum without lesion; cardia of stomach without lesion 4. Esophagus normal - EGD with endoscopic clipping for bleeding control - Avoid all NSAIDs. - Continue protonix drip. - IR consulted and did left gastric artery embolization. Recurrent upper GI bleed secondary to PUD - Patient is on IV Protonix - Monitor H/H and transfuse as needed Precipitous Drop in Hemoglobin with severe anemia - Hemoglobin was 5.8 at presentation - Transfused additional 1 Unit for a total of 3 units of blood and her hemoglobin yesterday was 8 and today 7.3 - Will monitor H/H in the morning if stable D/C. Tachyarrythmia -Ekg today -No chest pain. Anxiety -Start on home dose Xanax 0.5 when necessary daily. Disposition - Transfer to [facility] - If stable patient can be discharged in AM History Interval history: Patient is seen today for: Upper GI bleed Seen and examined at bedside; 24hour events reviewed; nursing staff ; no adverse overnight events reported to me; Denies any chest pain, nausea, vomiting, diarrh ea No fever noted blood pressure controlled Hospitalist Physical - Physical exam Narrative exam: VITAL SIGNS: Reviewed. GENERAL: The patient appeared well nourished and normally developed. Vital signs as documented. HEAD: No signs of head trauma. EYES: Pupils are equal. Extraocular motions intact. EARS: Hearing grossly intact. MOUTH: Oropharynx is normal. NECK: No adenopathy, no JVD. CHEST: Chest with clear breath sounds bilaterally. No wheezes, rales, or rhonchi. CARDIAC: Regular rate and rhythm. S1 and S2, without murmurs, gallops, or rubs. VASCULAR: No Edema. Peripheral pulses normal and equal in all extremities. ABDOMEN: Soft, without detectable tenderness. No sign of distention. No rebound or guarding, and no masses palpated. Bowel Sounds normal. MUSCULOSKELETAL: Good range of motion of all major joints. Extremities without clubbing, cyanosis or edema. NEUROLOGIC EXAM: Alert and oriented x 3. No focal sensory or strength deficits. Speech normal. Follows commands. PSYCHIATRIC: Mood normal. SKIN: No rash or lesions. - Constitutional Vitals: Temp Pulse Resp BP Pulse Ox 98.5 F 79 11 L 109/63 100 11/22/18 04:00 11/22/18 07:11 11/22/18 07:11 11/22/18 07:11 11/22/18 09:28 General appearance: Present: no acute distress Results - Labs CBC & Chem 7: 11/22/18 05:23 11/20/18 05:39 Labs: Laboratory Last Values WBC 8.7 K/mm3 (4.5-11.0) 11/20/18 05:39 RBC 3.31 M/mm3 (3.65-5.03) L 11/20/18 05:39 Hgb 6.9 gm/dl (10.1-14.3) L 11/22/18 05:23 Hct 21.2 % (30.3-42.9) L 11/22/18 05:23 MCV 75 fl (79-97) L 11/20/18 05:39 MCH 25 pg (28-32) L 11/20/18 05:39 MCHC 33 % (30-34) 11/20/18 05:39 RDW 22.3 % (13.2-15.2) H 11/20/18 05:39 Plt Count 323 K/mm3 (140-440) 11/20/18 05:39 Lymph % (Auto) 18.4 % (13.4-35.0) 11/20/18 05:39 [place] % (Auto) 5.6 % (0.0-7.3) 11/20/18 05:39 Eos % (Auto) 4.2 % (0.0-4.3) 11/20/18 05:39 Baso % (Auto) 0.5 % (0.0-1.8) 11/20/18 05:39 Lymph # 1.6 K/mm3 (1.2-5.4) 11/20/18 05:39 [place] # 0.5 K/mm3 (0.0-0.8) 11/20/18 05:39 Eos # 0.4 K/mm3 (0.0-0.4) 11/20/18 05:39 Baso # 0.0 K/mm3 (0.0-0.1) 11/20/18 05:39 Seg Neutrophils % 71.3 % (40.0-70.0) H 11/20/18 05:39 Seg Neutrophils # 6.2 K/mm3 (1.8-7.7) 11/20/18 05:39 PT 15.0 Sec. (12.2-14.9) H 11/18/18 06:26 INR 1.11 (0.87-1.13) 11/18/18 06:26 APTT 25.2 Sec. (24.2-36.6) 11/18/18 06:26 Sodium 140 mmol/L (137-145) 11/20/18 05:39 Potassium 4.1 mmol/L (3.6-5.0) 11/20/18 05:39 Chloride 105.1 mmol/L (98-107) 11/20/18 05:39 Carbon Dioxide 27 mmol/L (22-30) D 11/20/18 05:39 Anion Gap 12 mmol/L 11/20/18 05:39 BUN 6 mg/dL (7-17) L 11/20/18 05:39 Creatinine 0.5 mg/dL (0.7-1.2) L 11/20/18 05:39 Estimated GFR > 60 ml/min 11/20/18 05:39 BUN/Creatinine Ratio 12 % 11/20/18 05:39 Glucose 105 mg/dL (65-100) H 11/20/18 05:39 Calcium 8.3 mg/dL (8.4-10.2) L 11/20/18 05:39 Total Bilirubin < 0.20 mg/dL (0.1-1.2) 11/18/18 06:26 AST 34 units/L (5-40) 11/18/18 06:26 ALT 24 units/L (7-56) 11/18/18 06:26 Alkaline Phosphatase 63 units/L (35-129) 11/18/18 06:26 Total Protein 5.1 g/dL (6.3-8.2) L 11/18/18 06:26 Albumin 3.0 g/dL (3.9-5) L 11/18/18 06:26 Albumin/Globulin Ratio 1.4 % 11/18/18 06:26 Lipase 54 units/L (13-60) 11/18/18 06:26 HCG, Qual Negative (Negative) 11/18/18 06:26 Blood Type B POSITIVE 11/18/18 06:26 Antibody Screen Negative 11/18/18 06:26 Crossmatch See Detail 11/18/18 06:26
--- NOTE | 2018-11-22 13:40 | Gastroenterology Progress Note ---
Addendum entered and electronically signed by WILL WOODY MD 11/22/18 16:55: Patient seen and examined on 11/22/2018. No signs of active GI bleeding. EGD with gastric ulcer s/p clip and s/p embolization with IR. 1 unit PRBC to be transfused today for downtrend in H/H. If H/H stable tomorrow, Ok for discharge per GI standpoint. Will sign off. Original Note: Assessment and Plan (1) Gastric ulcer with hemorrhage Current Visit: Yes Status: Acute Plan to address problem: EGD on 11/18/2018 1. Massive clot in the stomach; could not see parts of fundus and body 2. Previous ulcer site seen with visible vessel; only 1 clip from previous endoscopy noted - Attempted to deploy 2 clips across visible vessel; one did not adhere (friable mucosa) but one did deploy across the vessel with no further active bleed 3. Duodenum and antrum without lesion; cardia of stomach without lesion 4. Esophagus normal - s/p IR embolization of left gastric artery. - H/H 6.9/21.2-slight trended down (1 unit PRBCs pending for today) -continue to monitor H/H and transfuse as needed - HD stable w/o active signs of bleeding overnight or this am - continue with PPI IV. - avoid NSAIDs - If H/H stable in am, ok for discharge per GI standpoint and follow up outpatient. - will sign off. Please call with questions. Subjective Date of service: 11/22/18 Principal diagnosis: recurrent UGIB Interval history: No acute distress. No active signs of bleeding overnight or this am. Denies abd pain or N/v. Tolerating diet. Objective - Constitutional Vitals: Temp Pulse Resp BP Pulse Ox 98.4 F 120 H 19 109/62 100 11/22/18 13:21 11/22/18 13:21 11/22/18 13:21 11/22/18 13:21 11/22/18 13:21 General appearance: no acute distress - Respiratory Respiratory: bilateral: CTA - Cardiovascular Rhythm: other (tachycardia) - Gastrointestinal General gastrointestinal: Present: soft, non-tender, non-distended, normal bowel sounds - Neurologic Neurological: alert and oriented x3 - Labs CBC & Chem 7: 11/22/18 05:23 11/20/18 05:39 Labs: Laboratory Results - last 24 hr 11/22/18 11/22/18 05:23 10:42 Hgb 6.9 L Hct 21.2 L Blood Type B POSITIVE Antibody Screen Negative Crossmatch See Detail
[2018-11-22] MEDS: XANAX PO SCH (15:08)
[2018-11-22] MEDS: TYLENOL PO PRN ×2 (15:48→19:47)
[2018-11-23] MEDS: ROXICODONE PO PRN ×2 (05:31→11:35)
[2018-11-23 05:32] LABS: Hematocrit 24.3 % (30.3-42.9); Mean Corpuscular HGB Conc 33 % (30-34); Mean Corpuscular Volume 77 fl (79-97); Platelet Count 369 K/mm3 (140-440); Red Blood Count 3.18 M/mm3 (3.65-5.03)
[2018-11-23 05:33] LABS: Red Cell Distribution Width 21.9 % (13.2-15.2)
[2018-11-23] MEDS: PROTONIX PO SCH (10:38)
[2018-11-23] MEDS: HABITROL TD SCH (10:38)
[2018-11-23] MEDS ORDERED: DULCOLAX PO PRN (10:38)
--- NOTE | 2018-11-23 10:49 | Discharge Summary ---
Providers - Providers Date of Admission: 11/18/18 07:27 Attending physician: SANTOS SCRUGGS MD 11/18/18 07:31 Consult to Physician [CONS] Urgent Comment: DR BRIDGES NOTIFIED 07 Consulting Provider: JUAN MIGUEL BRIDGES Physician Instructions: Reason For Exam: recurrent bleeding 11/18/18 10:27 Consult to Physician [CONS] Urgent Comment: Consulting Provider: BLUE CALABRESE Physician Instructions: Reason For Exam: gi bleed [facility] Reason for admission: GI bleed Condition: Stable Hospital course: 33-year-old -Indian female with no significant past medical history was presented to the emergency department with complaints of hematemesis 2. She said it was my feeling is that the patient become woozy. Patient was discharged from the hospital after she was monitored for upper GI bleed secondary to ulcer due to NSAIDs. H&H was stable at the time of discharge. Patient said she went home and started to smoke cigarettes, but denied use of alcohol or NSAIDs. Patient denied chest pain, shortness of breath. She said she had 3 episodes of melena. Patient sent there is blood transfusions in the ED and admitted to MICU. She proceeded to have an EGD that revealed. 1. Massive clot in the stomach; could not see parts of fundus and body 2. Previous ulcer site seen with visible vessel; only 1 clip from previous endoscopy noted - Attempted to deploy 2 clips across visible vessel; one did not adhere (friable mucosa) but one did deploy across the vessel with no further active bleed 3. Duodenum and antrum without lesion; cardia of stomach without lesion 4. Esophagus normal - EGD with endoscopic clipping for bleeding control - Avoid all NSAIDs. - Continue protonix drip. - IR consulted and did left gastric artery embolization. Discharge Diagnosis Recurrent upper GI bleed secondary to PUD Precipitous Drop in Hemoglobin with severe anemia S/P 2 UNITS PRBC Tachyarrythmia Anxiety Disposition: DC-01 TO HOME OR SELFCARE Time spent for discharge: 35 mins Core Measure Documentation - Palliative Care Palliative Care/ Comfort Measures: Not Applicable - Core Measures Any of the following diagnoses?: none Exam - Physical Exam Narrative exam: VITAL SIGNS: Reviewed. GENERAL: The patient appeared well nourished and normally developed. Vital signs as documented. HEAD: No signs of head trauma. EYES: Pupils are equal. Extraocular motions intact. EARS: Hearing grossly intact. MOUTH: Oropharynx is normal. NECK: No adenopathy, no JVD. CHEST: Chest with clear breath sounds bilaterally. No wheezes, rales, or rhonchi. CARDIAC: Regular rate and rhythm. S1 and S2, without murmurs, gallops, or rubs. VASCULAR: No Edema. Peripheral pulses normal and equal in all extremities. ABDOMEN: Soft, without detectable tenderness. No sign of distention. No rebound or guarding, and no masses palpated. Bowel Sounds normal. MUSCULOSKELETAL: Good range of motion of all major joints. Extremities without clubbing, cyanosis or edema. NEUROLOGIC EXAM: Alert and oriented x 3. No focal sensory or strength deficits. Speech normal. Follows commands. PSYCHIATRIC: Mood normal. SKIN: No rash or lesions. - Constitutional Vitals: Temp Pulse Resp BP Pulse Ox 98.2 F 107 H 16 101/59 100 11/22/18 21:31 11/22/18 21:31 11/22/18 21:31 11/22/18 21:31 11/22/18 21:31 Plan Activity: advance as tolerated, fall precautions Diet: low fat Special Instructions: record daily weights, record daily BP diary Follow up with: JESSICA HDZWAYNE MD SALLIE [Primary Care Provider] - 7 Days JUAN MIGUEL BRIDGES MD [Staff Physician] - 7 Days Forms: Accompanied Note Prescriptions: ALPRAZolam [Xanax] 1 mg PO DAILY PRN #7 tablet PRN Reason: Anxiety Ferrous Sulfate 325 mg PO BID #60 tablet. Nicotine [Habitrol] 14 mg TD QDAY #30 patch Pantoprazole [Protonix TAB] 40 mg PO QDAY #30 tablet Sennosides/Docusate Sodium [Senna-S Tablet] 1 each PO DAILY #30 tablet traMADol [Ultram] 50 mg PO Q6HR PRN #14 tablet PRN Reason: Pain
[2018-11-23 12:20] VITALS: BP 106/60
[2018-11-23] MEDS: XANAX PO SCH (12:28)
[2018-11-23] MEDS ORDERED: AFLURIA QUAD 2018-2019 SYRINGE IM ONE (14:00)
== END 2018-11-23 14:30 | disposition home or self-care (01) | DRG 270 ==
LOC: ED 06:11 → IMCU 07:27 → 3A 11-22 08:20
PROVIDERS: ADMIT Internal Medicine; ATTEND Internal Medicine
PROC: B41B1ZZ Fluoroscopy of Other Intra-Abdominal Arteries using Low Osmolar Contrast (ICD-10-PCS; principal; 2018-11-18)
PROC: 04V Lower Arteries, Restriction (ICD-10-PCS; 2018-11-18)
PROC: 04V Lower Arteries, Restriction (ICD-10-PCS; 2018-11-18)
PROC: 04V Lower Arteries, Restriction (ICD-10-PCS; 2018-11-18)
PROC: B4141ZZ Fluoroscopy of Superior Mesenteric Artery using Low Osmolar Contrast (ICD-10-PCS; 2018-11-18)
PROC: B41F1ZZ Fluoroscopy of Right Lower Extremity Arteries using Low Osmolar Contrast (ICD-10-PCS; 2018-11-18)
PROC: 30233N1 Transfusion of Nonautologous Red Blood Cells into Peripheral Vein, Percutaneous Approach (ICD-10-PCS; 2018-11-18)
PROC: 0W3P8ZZ Control Bleeding in Gastrointestinal Tract, Via Natural or Artificial Opening Endoscopic (ICD-10-PCS; 2018-11-18)
DX: I74.8 Embolism and thrombosis of other arteries (principal); K25.0 Acute gastric ulcer with hemorrhage; F41.9 Anxiety disorder, unspecified; F17.210 Nicotine dependence, cigarettes, uncomplicated; T39.395A Adverse effect of other nonsteroidal anti-inflammatory drugs [NSAID], initial encounter; Y92.89 Other specified places as the place of occurrence of the external cause; I49.9 Cardiac arrhythmia, unspecified; D64.9 Anemia, unspecified
CPT/HCPCS: 36248; 36415; 37242; 71045; 75726; 80048; 80053; 83690; 84703; 85014; 85018; 85025; 85027; 85610; 85730; 86850; 86900; 86901; 86920; 90686; 93005; 93010; 94760; 96374; 96375; 99291; G0378; A4649; C1760; C1769; C1887; C9113; J0690; J1170; J1644; J2250; J2270; J2405; J2704; J3010; J7030; J7040; P9016; Q9967

== ENCOUNTER 2018-11-28 18:04 | Emergency (ER) | payer OTHER ==
--- NOTE | 2018-11-28 18:13 | Emergency Department Report ---
Blank Doc - Documentation Documentation: This is a 33-year-old female that presents to the ED for medication refill. P atfaraz is requesting for tramadol, xanax, and protonix refill. Stated has not yet seen PCP. This initial assessment diagnostic orders/clinical plan/treatment(s) is/are subject to change based on patient's health status, clinical progression and re- assessment by fellow clinical providers in the ED. Further treatment and workup at subsequent clinical providers discretion. Patient/guardians urged not to elope from ED s their condition may be serious if not clinically assessed and managed. Initial orders include: 1-Patient sent to [facility] for further evaluation and treatment
== END 2018-11-28 22:00 | disposition left against medical advice (07) ==
LOC: ED 18:04
CPT/HCPCS: 99281